=== PATIENT | female | born 2000 | race Caucasian/White ===

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

== ENCOUNTER 2020-05-23 16:15 | Observation (INO) ==
[2020-05-23] MEDS ORDERED: ACETAMINOPHEN 325 MG TAB PO PRN (17:00)
[2020-05-23] MEDS ORDERED: LACTATED RINGER'S 1,000 ML IV ONE (17:00)
--- NOTE | 2020-05-23 17:12 | History & Physical Report ---
Date of Service May 23, 2020 Assessment & Plan (1) Vaginal bleeding during : 19 yo at 33.56 wks with cramping, VB after VE VSS Afebrile FHR reassuring No regular ctxs on monitor VB is from either VE/ cervical irritation or early labor Plan to monitor, labs, US for CHIO and placenta, cultures, Celestone for FLM, IVF bolus and recheck All questions were answered (2) Threatened labor, antepartum: History of Present Illness Chief Complaint: Bleeding Primary Care Provider: NO PCP Patient is a 19 yo at 33.6 wks who presented to office for cramping/ ctxs every 10-15 since this morning She was oon monitor, no ctxs were seen Her cervix was closed She started to have active VB right after VE Blood on floor and used [address] ( dark small amount on her way here) Cramping is now in her back She also reports LOF for the last 2 days, she was not checked for that in the office She describes as mucous d/c and trickling clear fluid on her pad She never had VB until after VE in office Denies fever/ chills/ Problems with urination/ vaginal d/c or odor Denies chances of STD's Reports good +FM Allergies Allergy/AdvReac Type Severity Reaction Status Date / Time No Known Allergies Allergy Unknown NONE Verified 08/31/19 22:57 Home Medications Home Medications Medication Instructions Recorded Confirmed Type No Known Home Medications 08/31/19 08/31/19 History Patient History Medical History Migraines Seizures Surgical History No pertinent past surgical history Family History Other Diabetes Hypertension Social History Feels Safe at Home: Yes Smoking Status: Current every day smoker Review of Systems All systems reviewed & are unremarkable except as noted in HPI & below Physical Exam Gastrointestinal (Abdomen): normal bowel sounds, soft, nontender, no hepatosplenomegaly (soft, NT, gravid) Genitourinary: normal external appearance (stained blood on perineum, small dark) Manual OB Exam: + cervical dilation 1 cm, + cervical effacement 30% and + station -2 OB Exam Monitor Tracing: + category I SSE; small about 5 cc of dark blood in posterior fornix Cleaned with 3 leslie swabs, no active bleeding nor leaking from os Ferning negative Cervix as above Results & Data Vital Signs (Past 12 Hours) Vital Signs Pulse BP 20 16:37 108 H 119/75
[2020-05-23] MEDS ORDERED: BETAMETH SOD PHOS/ACETATE IA 6 MG/ML IM SCH (18:00)
[2020-05-23 18:06] LABS: Basophils # (auto) 0.02 K/uL (0-0.2); Basophils % (auto) 0.2 %; Eosinophils # (auto) 0.15 K/uL (0-0.5); Eosinophils % (auto) 1.3 %; Hematocrit (blood only) 31.3 % (37-47); Hemoglobin 10.2 g/dL (12.0-16.0); Immature Granulocytes # (auto) 0.14 K/uL (0.00-0.02); Immature Granulocytes % (auto) 1.2 %; Lymphocytes # (auto) 1.69 K/uL (1.2-3.4); Lymphocytes % (auto) 14.7 %; Mean Corpuscular Hemoglobin 29.8 pg (25-34); Mean Corpuscular Hgb Conc 32.6 g/dL (32-36); Mean Corpuscular Volume 91.5 fL (80-100); Mean Platelet Volume 11.1 fL (7.4-10.4); Monocytes # (auto) 0.93 K/uL (0.11-0.59); Monocytes % (auto) 8.1 %; Neutrophils # (auto) 8.55 K/uL (1.4-6.5); Neutrophils % (auto) 74.5 %; Platelet Count 240 K/uL (130-400); RDW Coefficient of Variation 12.8 % (11.5-14.5); RDW Standard Deviation 42.8 fL (36.4-46.3); Red Blood Count 3.42 M/uL (4.2-5.4); White Blood Count 11.48 K/uL (4.8-10.8)
[2020-05-23] MEDS: LACTATED RINGER'S 1,000 ML IV PRN ×2 (18:24→22:47)
[2020-05-23 18:25] LABS: Alanine Aminotransferase 20 U/L (12-78); Albumin Level 2.7 gm/dl (3.4-5.0); Aspartate Aminotransferase 14 U/L (15-37); BUN Creatinine Ratio 8.3 (10-20); Blood Urea Nitrogen 4 mg/dl (7-18); Calcium 8.6 mg/dl (8.5-10.1); Carbon Dioxide 25 mmol/L (21-32); Chloride 110 mmol/L (98-107); Creatinine Clr Calc Pharmacy 188.1 ml/min; Est GFR (African American) > 150.0; Est GFR (Non-African American) 139.3; Glucose 82 mg/dl (70-99); Potassium 3.6 mmol/L (3.5-5.1); Sodium 138 mmol/L (136-145)
[2020-05-23 18:27] LABS: Albumin Globulin Ratio 0.7 (0.9-2); Alkaline Phosphatase 127 U/L (45-117); Bilirubin,Total 0.2 mg/dl (0.2-1); Globulin 4.1 gm/dl (2.5-4.0); Total Protein 6.8 gm/dl (6.4-8.2)
[2020-05-23] MEDS ORDERED: NIFEdipine 10 MG CAP PO STA ×2 (18:37→19:34)
--- NOTE | 2020-05-23 19:08 | Obstetrical Progress Note ---
Date of Service May 23, 2020 Subjective Patient is reevaluated She feels about the same, Does not feel ctxs which are on monitor Small dark blood on toilet paper once since last exam FHR reactive Pomeroy; ctxs q 3-5 minutes VE; 2/ 50%/ -3, posterior, small dark blood on glove Bed side us: Vertex, placenta anterior, no previa, no s/s of abruption, smooth normal placenta CHIO; 12.1 cm Fetus active Discussed the findings and option of tocolysis here and then transfer if more cervical change or transfer to tertiary care center She likes to think about it and then decide She received 20 mg of Procardia now Results & Data ([facility]) Vital Signs (Past 12 Hours) Vital Signs Temp Pulse Resp BP 05/23/20 16:39 37.0 C 100 H 18 119/75 05/23/20 16:37 108 H 119/75
[2020-05-23 19:14] LABS: Fibrinogen 463 mg/dl (184-400); INR 0.9 (0.9-1.1); Partial Thromboplastin Ratio 0.9; Partial Thromboplastin Time 24.5 Seconds (21.0-31.0); Prothrombin Time 9.8 Seconds (9.0-12.0)
[2020-05-23] MEDS ORDERED: TERBUTALINE SULFATE 1 MG/ML VIAL SQ ONE (20:38)
--- NOTE | 2020-05-23 20:41 | Obstetrical Progress Note ---
Date of Service May 23, 2020 Subjective Patient is reevaluated She feels crampy, every 2-3 min, not painful No side effects from Procardia Wiped same, small dark blood, no red blood VE 2/ 30%/ -3, posterior, thicker and higher FHR reactive Keller: smaller but more often ctxs, q 1-2 minutes Pulse 97 Plan to give 1 dose of terbutaline and observe overnight All questions were answered Results & Data ([facility]) Vital Signs (Past 12 Hours) Vital Signs Temp Pulse Resp BP 05/23/20 20:36 97 H 119/67 05/23/20 20:04 113 H 128/68 05/23/20 19:31 37.1 C 113 H 20 132/80 05/23/20 19:04 100 H 130/88 05/23/20 16:39 37.0 C 100 H 18 119/75 05/23/20 16:37 108 H 119/75
[2020-05-23] MEDS ORDERED: FERROUS SULFATE 325 MG TAB PO STA (22:31)
[2020-05-23] MEDS ORDERED: NIFEdipine EXTENDED REL 30 MG TABCR PO SCH (23:55)
[2020-05-24] MEDS ORDERED: LACTATED RINGER'S 1,000 ML IV SCH (00:30)
--- NOTE | 2020-05-24 09:42 | Obstetrical Progress Note ---
Date of Service May 24, 2020 Assessment & Plan Admission and Anticipated Discharge Date Admission Date: May 23, 2020 Subjective Pt seen and examined FHR ; CAY1 No ctx pt reports feeling much better Denies any bleeding disch home with instructions Rx sent to [facility] Results & Data ([facility]) Vital Signs (Past 12 Hours) Vital Signs Temp Pulse Resp BP 05/24/20 07:07 94 H 116/69 05/24/20 07:01 36.6 C 18 05/24/20 07:00 18 05/24/20 06:00 18 05/24/20 05:30 18 05/24/20 05:00 18 05/24/20 04:27 96 H 118/69 05/24/20 00:40 36.7 C 18 05/24/20 00:37 36.7 C 18 05/24/20 00:35 126 H 125/69 05/24/20 00:31 111 H 111/60 05/24/20 00:16 112 H 113/56 L 05/24/20 00:15 110 H 112/58 L 05/23/20 23:32 118 H 130/76 05/23/20 23:17 125 H 133/72 05/23/20 23:02 121 H 127/70 05/23/20 23:00 37.0 C 18 05/23/20 22:52 123 H 121/63 05/23/20 22:32 120 H 130/65 05/23/20 22:16 116 H 125/73 05/23/20 22:02 121 H 132/77 05/23/20 21:46 118 H 129/67
--- NOTE | 2020-05-24 09:58 | Discharge Summary (DS) ---
DATE OF DISCHARGE: 05/24/2020 HISTORY OF PRESENT ILLNESS: This is a 19-year-old G1, P0 at 34 weeks today who was seen yesterday in the office with complaints of vaginal bleeding. She was sent to labor and delivery where she was admitted for observation overnight. While here in labor and delivery patient's bleeding remarkably improved. She has not had any bleeding since admission for observation. This morning she denies any bleeding. The patient had some cramping while she was here, which was also improved with Procardia and IV fluids. The patient is presently being discharged home in stable condition with instructions. PAST MEDICAL HISTORY, PAST SURGICAL HISTORY, ALLERGIES, FAMILY HISTORY, SOCIAL HISTORY: Have all been reviewed. PLAN ON DISCHARGE: The patient will follow up in the office as an outpatient.
[2020-05-24] MEDS ORDERED: BETAMETH SOD PHOS/ACETATE IA 6 MG/ML IM SCH (17:00)
== END 2020-05-24 10:00 | disposition home or self-care (01) ==
LOC: 4S1 16:15 → OPB 16:15 → 4S1 16:16

== ENCOUNTER 2020-07-04 13:24 | Inpatient (IN) ==
[2020-07-04] MEDS ORDERED: DINOPROSTONE 10 MG INSERT PV ONE (15:27)
[2020-07-04] MEDS ORDERED: PENICILLIN G POTASSIUM 6 MU in DEXTROSE 5% 250 ML IV STA (15:27)
[2020-07-04] MEDS ORDERED: OXYTOCIN 30 UNITS/500 ML BAG IV PRN ×2 (15:27→15:39)
--- NOTE | 2020-07-04 15:45 | History & Physical Report ---
Date of Service July 04, 2020 Assessment & Plan (1) Oligohydramnios: 19 yo at 39.6 wks with oligohydramnios, CHIO 2.2 VSS Afebrile No signs of ROM FHR reassuring GBS+ Plan to admit, monitor, discussed Cervidil vs Pitocin, she opted for Pitocin for IOL History of Present Illness Primary Care Provider: NO PCP Patient is a 19 yo at 39.6 wks who was sent from office with CHIO of 2.2 cm No complaints She has been having clear d/c since last week, not sure it was leaking, no gush, no trickling No ctxs/ VB/ fever/ chills/ Abd pain +FM's Her has been uncomplicated GBS+ COVID 19-: negative Allergies Allergy/AdvReac Type Severity Reaction Status Date / Time No Known Allergies Allergy Unknown NONE Verified 06/04/20 22:07 Home Medications Home Medications Medication Instructions Recorded Confirmed Type Vitamin 1 tab PO DAILY 05/23/20 07/04/20 History nifedipine [Procardia XL] 30 mg PO HS #21 tab 05/24/20 07/04/20 Rx Patient History Medical History Migraines Seizures Surgical History No pertinent past surgical history Social History Smoking Status: Former smoker Cigarettes Per Day: quit with positive test; Second Hand Exposure: No; Do You Dip or Chew Tobacco: No; Tobacco Cessation Education Requested by Patient: No Hx Alcohol Use: No Hx Substance Use: Yes Last Used Substance Other:: 2012 Preferred Language: [place] Communication Ability: Effective Desizing Machine Operator Required: No Beliefs That Will Affect Care: None marital status: Single Current Living Situation: Spouse Other Information That Helps Us Care for You: No Feels Safe at Home: Yes Safety Concerns: Feels Safe At This Time [employer] History No h/o STD's, no HSV Review of Systems All systems reviewed & are unremarkable except as noted in HPI & below Physical Exam Constitutional: WD/WN, vitals as above well developed and well nourished Comfortable, NAD Genitourinary: normal external appearance OB Exam Abdomen: + vertex Manual OB Exam: + cervical dilation 3 cm, + cervical effacement 50% and + station -2 OB Exam Monitor Tracing: + external uterine monitor used and + category I Results & Data Vital Signs (Past 12 Hours) Vital Signs Pulse Resp BP 07/04/20 14:39 107 H 18 131/81 07/04/20 13:38 107 H 131/81
[2020-07-04 15:58] LABS: Hematocrit (blood only) 32.6 % (37-47); Hemoglobin 10.6 g/dL (12.0-16.0); Mean Corpuscular Volume 89.1 fL (80-100); Mean Platelet Volume 11.2 fL (7.4-10.4); Platelet Count 247 K/uL (130-400); RDW Coefficient of Variation 13.3 % (11.5-14.5); RDW Standard Deviation 43.4 fL (36.4-46.3); Red Blood Count 3.66 M/uL (4.2-5.4); White Blood Count 12.21 K/uL (4.8-10.8)
[2020-07-04 15:59] LABS: Mean Corpuscular Hgb Conc 32.5 g/dL (32-36)
[2020-07-04] MEDS: LACTATED RINGER'S 1,000 ML IV PRN ×2 (16:00→19:51)
[2020-07-04 16:11] LABS: Alanine Aminotransferase 17 U/L (12-78); Albumin Level 2.6 gm/dl (3.4-5.0); Aspartate Aminotransferase 14 U/L (15-37); Blood Urea Nitrogen 5 mg/dl (7-18); Calcium 8.9 mg/dl (8.5-10.1); Carbon Dioxide 21 mmol/L (21-32); Chloride 107 mmol/L (98-107); Creatinine Clr Calc Pharmacy 190.3 ml/min; Est GFR (African American) > 150.0; Est GFR (Non-African American) 138.4; Glucose 71 mg/dl (70-99); Potassium 3.5 mmol/L (3.5-5.1); Sodium 135 mmol/L (136-145)
[2020-07-04 16:14] LABS: Albumin Globulin Ratio 0.6 (0.9-2); Alkaline Phosphatase 204 U/L (45-117); Bilirubin,Total 0.3 mg/dl (0.2-1); Globulin 4.3 gm/dl (2.5-4.0); Total Protein 6.9 gm/dl (6.4-8.2)
[2020-07-04] MEDS ORDERED: BUPIVACAINE 0.25% 30 ML VIAL ONE (19:58)
[2020-07-04] MEDS ORDERED: ePHEDrine sulfate 50 MG/ML AMP ONE (19:58)
--- NOTE | 2020-07-04 19:58 | Obstetrical Progress Note ---
Date of Service July 04, 2020 Assessment & Plan Admission and Anticipated Discharge Date Admission Date: July 04, 2020 Subjective Patient stated to feel ctxs for the last 30 min or so She wants to know what her cervix is and then plan for epidural VSS Afebrile FHR reassuring VE: 4/ 60%/ -2, attempted AROM but unable Continue to monitor Epidural for pain Results & Data ([facility]) Vital Signs (Past 12 Hours) Vital Signs Temp Pulse Resp BP 07/04/20 19:10 36.9 C 18 07/04/20 18:22 98 H 125/70 07/04/20 14:39 107 H 18 131/81 07/04/20 13:38 107 H 131/81
[2020-07-04] MEDS ORDERED: fentaNYL 2MCG/ML ROPIV 1.25MG/ML 100 ML BAG EPI ONE (19:59)
[2020-07-04] MEDS ORDERED: fentaNYL citrate 100 MCG/2 ML VIAL ONE (19:59)
--- NOTE | 2020-07-04 20:00 | Anesthesiology Consultation ---
Date of Service July 04, 2020 Assessment & Plan Chart Review Chart Review: Acceptable Risk for Surgery, Patient NOT seen in Pre Admission Testing and Acceptable Risk for Labor Epidural Consults Requested none ASA ASA2 Proposed Anesthesia Anesthesia Type: Labor Epidural and CSE History Height/Weight Height: 5 ft 5 in Weight: 85.729 kg Allergies Allergy/AdvReac Type Severity Reaction Status Date / Time No Known Allergies Allergy Unknown NONE Verified 06/04/20 22:07 Medications Home Medications Medication Instructions Recorded Confirmed Last Taken Vitamin 1 tab PO DAILY 05/23/20 07/04/20 06/03/20 20:30 nifedipine [Procardia XL] 30 mg PO HS #21 tab 05/24/20 07/04/20 06/03/20 20:30 Active Medications Generic Name Dose Route Start Last Admin Trade Name Freq PRN Reason Stop Dose Admin Lactated Ringer's 1,000 mls @ 150 mls/hr 07/04/20 15:27 07/04/20 19:51 Lr IV 07/06/20 15:26 999 mls/hr .[id number] PRN Administration L&D Protocol Protocol Oxytocin 30 units in 500 mls @ 10 mls/hr 07/04/20 15:39 07/04/20 18:50 Pitocin IV 07/06/20 15:38 0.6 units/hr .Q24H PRN 10 mls/hr Labor Induction/Augmentation Titration Protocol 0.6 UNITS/HR Past Medical History Medical History Migraines Seizures Exercise / Class Metabolic Activity II 4-5 Yardwork/Stairs/Walk up hill Past Family History Family History Other Diabetes Hypertension Past Surgical History Surgical History No pertinent past surgical history Past Anesthesia History No Hx of Anesthesia Complications and No Family Hx of Anesthesia Complications History of PONV No Hx of PONV and No Hx of Motion Sickness Social History Smoking Status: Former smoker Smoking cigarettes per day: quit with positive test Do You Dip or Chew Tobacco: No Hx Alcohol Use: No Hx Substance Use: Yes substance use type: marijuana Last Used Substance Other:: 2012 Physical Exam Vital Signs Last Vital Signs Temp 36.9 C 07/04/20 19:10 Pulse 98 H 07/04/20 18:22 Resp 18 07/04/20 19:10 BP 125/70 07/04/20 18:22 Testing Laboratory Results 07/04/20 15:45 07/04/20 15:45
[2020-07-04] MEDS: PENICILLIN G POTASSIUM 3 MU in DEXTROSE 5% 100 ML IV PRN (20:10)
[2020-07-04] MEDS ORDERED: ONDANSETRON INJ 2 MG/ML 2 ML VIAL IV PRN (20:41)
[2020-07-04] MEDS ORDERED: NALOXONE HCL 0.4 MG/1 ML VIAL/CARP IV PRN (20:41)
[2020-07-04] MEDS ORDERED: PROMETHAZINE HCL 25 MG in SODIUM CHLORIDE 0.9% 50 ML IV PRN (20:41)
[2020-07-04] MEDS ORDERED: DiphenhydrAMINE HCL 50 MG/ML VIAL IV PRN (20:41)
[2020-07-04] MEDS ORDERED: fentaNYL 2MCG/ML ROPIV 1.25MG/ML 100 ML BAG EPI PRN (20:41)
[2020-07-04] MEDS ORDERED: ePHEDrine sulfate 50 MG/ML AMP IV PRN (20:41)
[2020-07-04] MEDS ORDERED: NALOXONE HCL 1 MG in SODIUM CHLORIDE 0.9% 1000ML 1,000 ML IV PRN (20:41)
[2020-07-05] MEDS: LACTATED RINGER'S 1,000 ML IV PRN (00:02)
[2020-07-05] MEDS: PENICILLIN G POTASSIUM 3 MU in DEXTROSE 5% 100 ML IV PRN (00:02)
--- NOTE | 2020-07-05 00:13 | Obstetrical Progress Note ---
Date of Service July 05, 2020 Assessment & Plan Admission and Anticipated Discharge Date Admission Date: July 04, 2020 Subjective I checked her around 2330 Had VB, more than bloody show VE; 7/ 80%/ 0, scalp and sutures felt, no bag FHR 130's with mild early decels with ctxs and good variability Pitocin was stopped, IVF, O2 was started Bed side US: Vertex, n pelvis, facing up, FHR 130's, anterior normal placenta, CHIO 3.2 cm, there is a 4.5 pocket but has cord in it ( unable to count that) FHR now with acceleration No more VB Continue to monitor closely Order some labs Results & Data ([facility]) Vital Signs (Past 12 Hours) Vital Signs Temp Pulse Resp BP Pulse Ox 07/05/20 00:06 80 100 07/05/20 00:01 77 100 07/04/20 23:56 72 100 07/04/20 23:54 77 108/67 07/04/20 23:51 74 99 07/04/20 23:46 68 100 07/04/20 23:41 69 99 07/04/20 23:39 79 132/75 07/04/20 23:36 79 97 07/04/20 23:31 86 95 07/04/20 23:26 81 96 07/04/20 23:23 81 108/57 L 07/04/20 23:21 86 96 07/04/20 23:16 83 96 07/04/20 23:11 72 96 07/04/20 23:09 90 107/58 L 07/04/20 23:08 36.7 C 18 07/04/20 23:06 84 97 07/04/20 23:01 68 96 07/04/20 22:56 79 98 07/04/20 22:53 82 117/62 07/04/20 22:51 75 96 07/04/20 22:46 77 96 07/04/20 22:41 81 96 07/04/20 22:38 65 112/64 07/04/20 22:36 80 100 07/04/20 22:31 63 99 07/04/20 22:26 62 99 07/04/20 22:23 83 128/74 07/04/20 22:21 79 96 07/04/20 22:16 76 95 07/04/20 22:11 76 95 07/04/20 22:08 74 120/71 07/04/20 22:06 80 97 07/04/20 22:01 90 96 07/04/20 21:56 90 96 07/04/20 21:53 88 115/76 07/04/20 21:51 86 95 07/04/20 21:46 83 96 07/04/20 21:41 86 97 07/04/20 21:38 90 119/77 07/04/20 21:36 79 95 07/04/20 21:31 85 97 07/04/20 21:26 92 H 96 07/04/20 21:23 79 121/77 07/04/20 21:21 99 H 97 07/04/20 21:16 90 96 07/04/20 21:11 82 97 07/04/20 21:08 36.7 C 112 H 18 126/81 07/04/20 21:06 95 H 97 07/04/20 21:01 99 H 97 07/04/20 20:56 96 H 97 07/04/20 20:54 101 H 124/78 07/04/20 20:51 106 H 98 07/04/20 20:46 97 H 97 07/04/20 20:41 93 H 97 07/04/20 20:37 95 H 118/62 07/04/20 20:36 89 96 07/04/20 20:35 99 H 125/62 07/04/20 20:31 96 H 96 07/04/20 20:27 96 H 132/83 07/04/20 20:26 97 H 97 07/04/20 20:21 95 H 97 07/04/20 20:16 92 H 98 07/04/20 20:11 81 98 07/04/20 20:06 77 98 07/04/20 19:10 36.9 C 18 07/04/20 18:22 98 H 125/70 07/04/20 14:39 107 H 18 131/81 07/04/20 13:38 107 H 131/81
[2020-07-05 00:31] LABS: Basophils # (auto) 0.01 K/uL (0-0.2); Basophils % (auto) 0.1 %; Eosinophils # (auto) 0.09 K/uL (0-0.5); Eosinophils % (auto) 0.8 %; Hemoglobin 9.8 g/dL (12.0-16.0); Immature Granulocytes # (auto) 0.06 K/uL (0.00-0.02); Immature Granulocytes % (auto) 0.5 %; Lymphocytes # (auto) 2.11 K/uL (1.2-3.4); Lymphocytes % (auto) 17.7 %; Mean Corpuscular Hemoglobin 29.9 pg (25-34); Mean Corpuscular Volume 88.4 fL (80-100); Mean Platelet Volume 11.1 fL (7.4-10.4); Monocytes # (auto) 0.77 K/uL (0.11-0.59); Monocytes % (auto) 6.4 %; Neutrophils % (auto) 74.5 %; Platelet Count 216 K/uL (130-400); RDW Coefficient of Variation 13.3 % (11.5-14.5); RDW Standard Deviation 43.3 fL (36.4-46.3); Red Blood Count 3.28 M/uL (4.2-5.4); White Blood Count 11.94 K/uL (4.8-10.8)
[2020-07-05 00:35] LABS: Mean Corpuscular Hgb Conc 33.8 g/dL (32-36)
[2020-07-05 01:03] LABS: Fibrinogen 427 mg/dl (184-400); INR 0.9 (0.9-1.1); Partial Thromboplastin Ratio 0.8; Partial Thromboplastin Time 23.6 Seconds (21.0-31.0); Prothrombin Time 9.8 Seconds (9.0-12.0)
[2020-07-05] MEDS ORDERED: BENZOCAINE 20% AER SPR 82.5 GM CAN EXT PRN (04:52)
[2020-07-05] MEDS ORDERED: SUPERCREAM 0.870% 15 GM JAR EXT PRN (04:52)
[2020-07-05] MEDS ORDERED: HYDROCORTISONE ACETATE 25 MG SUPP PR PRN (04:52)
[2020-07-05] MEDS ORDERED: bisacodyL 10 MG SUPP PR PRN (04:52)
[2020-07-05] MEDS ORDERED: DIPHTHERIA/TETANUS/PERTUSSIS 0.5 ML SYR/VIAL IM ONE (04:52)
[2020-07-05] MEDS ORDERED: ACETAMINOPHEN 325 MG TAB PO PRN (04:52)
[2020-07-05] MEDS ORDERED: OXYCODONE/ACETAMINOPHEN 5mg/325mg TAB PO PRN (04:52)
[2020-07-05] MEDS: IBUPROFEN 600 MG TAB PO PRN ×3 (06:13→20:15)
[2020-07-05] MEDS: DOCUSATE SODIUM 100 MG CAP PO SCH ×2 (08:51→21:18)
--- NOTE | 2020-07-05 09:14 | Anesthesia Procedure Note ---
Date of Service July 05, 2020 Anesthesia Post Epidural Note Vital Signs Vital Signs: Temp Pulse Resp BP Pulse Ox 36.8 C 96 H 16 111/61 99 07/05/20 06:20 07/05/20 06:20 07/05/20 06:20 07/05/20 06:20 07/05/20 03:11 Pain Intensity Perineal: Pain Intensity: 2 Notes Mental Status: alert / awake / arousable and participated in evaluation Nausea / Vomiting: adequately controlled Pain: adequately controlled Airway Patency, RR, SpO2: stable & adequate BP & HR: stable & adequate Hydration State: stable & adequate Neuraxial Anesthesia: was administered and sensory block is resolving Anesthetic Complications: no major complications apparent and Pt Satisfied with anesthetic care Epidural: Removed without complications and With tip intact
--- NOTE | 2020-07-05 09:57 | Delivery Summary ---
DATE OF OPERATION: 07/05/2020 TIME OF DELIVERY: 02:48 a.m. DETAILS OF DELIVERY: The patient was found to be fully dilated and desired to push. She pushed through 3 contractions and baby's head was and heart rate was going down to 70s. There was a tight band on the hymen and perineal skin holding baby's head. It was incised with the scissors about 2 cm and then with the next push head was delivered without difficulty. Shoulders were delivered with minimal traction. Baby was handed off to the mother where mouth and nose were suctioned. Cord was clamped x2 and cut. It was 3-vessel cord. Cord blood was obtained and then vagina and perineum were checked for lacerations. There was a small episiotomy, which was opened earlier. It was a second-degree. It was repaired with 2-0 Vicryl in a running locked fashion, skin in a subcuticular fashion. Excellent hemostasis was achieved. Rest of the vagina and labia were intact. Placenta was found to be in the vagina, delivered spontaneous as intact and complete. Uterus was explored, found to be empty. Lower segment was cleared of all clots and debris. Fundus was firm. EBL was 200 mL. Mom and baby tolerated the procedure well. Sponge, lap, needle count was correct x2. Baby was a viable male infant, Apgars 8/9. No complications happened and I was present during whole procedure. I attest to the content of the Intraoperative Record and any orders documented therein. Any exceptions are noted below. ALEXD
[2020-07-06] MEDS: DOCUSATE SODIUM 100 MG CAP PO SCH ×2 (08:28→20:23)
[2020-07-06] MEDS: IBUPROFEN 600 MG TAB PO PRN (08:29)
--- NOTE | 2020-07-06 10:49 | Obstetrical Progress Note ---
Date of Service July 06, 2020 Assessment & Plan Admission and Anticipated Discharge Date Admission Date: July 04, 2020 Subjective PPD#1 doing well oob barber diet passing gas Physical Exam Constitutional: WD/WN, vitals as above comfortable abdomen is soft fundus firm no edema neg Shawn's tent d/c in AM Results & Data ([facility]) Vital Signs (Past 12 Hours) Vital Signs Temp Pulse Resp BP Pulse Ox 07/06/20 07:20 36.6 C 69 18 116/79 98 07/06/20 04:00 36.6 C 90 18 130/81 98 07/05/20 23:35 36.7 C 89 18 110/68 97 Laboratory Results Laboratory Results - last 72 hr 07/04/20 07/04/20 07/04/20 15:34 15:45 15:45 WBC 12.21 H RBC 3.66 L Hgb 10.6 L Hct 32.6 L MCV 89.1 MCH 29.0 MCHC 32.5 RDW Std Deviation 43.4 RDW Coeff of Otoniel 13.3 Plt Count 247 MPV 11.2 H Immature Gran % (Auto) Neut % (Auto) Lymph % (Auto) [place] % (Auto) Eos % (Auto) Baso % (Auto) Neut # (Auto) Lymph # (Auto) [place] # (Auto) Eos # (Auto) Baso # (Auto) Immature Gran # (Auto) PT INR APTT PTT Ratio Fibrinogen Sodium 135 L Potassium 3.5 Chloride 107 Carbon Dioxide 21 Anion Gap 7.0 BUN 5 L Creatinine 0.51 L Est Cr Clr Drug Dosing 190.3 Est GFR ( Amer) > 150.0 Est GFR (Non-Af Amer) 138.4 BUN/Creatinine Ratio 9.0 L Glucose 71 Calcium 8.9 Total Bilirubin 0.3 AST 14 L ALT 17 Alkaline Phosphatase 204 H Total Protein 6.9 Albumin 2.6 L Globulin 4.3 H Albumin/Globulin Ratio 0.6 L Amniotic Protein NEG 07/05/20 07/05/20 00:21 00:21 WBC 11.94 H RBC 3.28 L Hgb 9.8 L Hct 29.0 L MCV 88.4 MCH 29.9 MCHC 33.8 RDW Std Deviation 43.3 RDW Coeff of Otoniel 13.3 Plt Count 216 MPV 11.1 H Immature Gran % (Auto) 0.5 Neut % (Auto) 74.5 Lymph % (Auto) 17.7 [place] % (Auto) 6.4 Eos % (Auto) 0.8 Baso % (Auto) 0.1 Neut # (Auto) 8.90 H Lymph # (Auto) 2.11 [place] # (Auto) 0.77 H Eos # (Auto) 0.09 Baso # (Auto) 0.01 Immature Gran # (Auto) 0.06 H PT 9.8 INR 0.9 APTT 23.6 PTT Ratio 0.8 Fibrinogen 427 H Sodium Potassium Chloride Carbon Dioxide Anion Gap BUN Creatinine Est Cr Clr Drug Dosing Est GFR ( Amer) Est GFR (Non-Af Amer) BUN/Creatinine Ratio Glucose Calcium Total Bilirubin AST ALT Alkaline Phosphatase Total Protein Albumin Globulin Albumin/Globulin Ratio Amniotic Protein
[2020-07-06] MEDS ORDERED: bisacodyL 5 MG TABEC PO SCH (20:00)
[2020-07-07] MEDS: DOCUSATE SODIUM 100 MG CAP PO SCH (08:09)
--- NOTE | 2020-07-07 08:56 | Obstetrical Progress Note ---
Date of Service July 07, 2020 Assessment & Plan (1) Normal course: PPD #2 pt doing well No complaints wishes to be disch home d/c home with instructions Subjective Ambulation: ambulating normally Voiding: no voiding problems Passing Gas:: Yes Diet Tolerance:: regular diet Lochia:: Small Feeding Type:: breast feeding Review of Systems All systems reviewed & are unremarkable except as noted in HPI & below Physical Exam Constitutional WD/WN, vitals as above well developed and well nourished Eyes PERRL, conjunctivae normal, anicteric sclerae Neck trachea midline, no thyromegaly Respiratory normal respiratory effort, lungs clear to auscultation Auscultation: no crackles, no rales and no wheezes Cardiovascular RRR, no murmur, no edema Gastrointestinal (Abdomen) normal bowel sounds, soft, nontender, no hepatosplenomegaly Uterus is below umbilicus Musculoskeletal no cyanosis or clubbing, extremities motor strength 5/5 Skin no rashes, warm and dry Neurologic patellar DTR's 2+ bilat, sensation intact Psychiatric A+Ox3, euthymic affect Genitourinary normal external appearance Results & Data ([facility]) Vital Signs (Past 12 Hours) Vital Signs Temp Pulse Resp BP Pulse Ox 07/07/20 07:45 36.7 C 91 H 18 104/62 97 07/07/20 00:50 36.5 C 90 16 115/77
== END 2020-07-07 11:55 | disposition home or self-care (01) | DRG 807 ==
LOC: 4S1 13:24 → 4S2 07-05 06:30

== ENCOUNTER 2021-01-16 21:25 | Observation (INO) ==
[~2021-01-16 21:25] MED LIST: LACTATED RINGER'S 1,000 ML IV SCH
[2021-01-16] MEDS ORDERED: SODIUM CHLORIDE 0.9% 1000ML 1,000 ML IV SCH (22:00)
[2021-01-16 22:13] LABS: Hematocrit (blood only) 33.4 % (37-47); Hemoglobin 11.2 g/dL (12.0-16.0); Mean Corpuscular Hemoglobin 29.6 pg (25-34); Mean Corpuscular Hgb Conc 33.5 g/dL (32-36); Mean Corpuscular Volume 88.1 fL (80-100); Mean Platelet Volume 11.2 fL (7.4-10.4); Platelet Count 349 K/uL (130-400); RDW Standard Deviation 44.9 fL (36.4-46.3); Red Blood Count 3.79 M/uL (4.2-5.4); White Blood Count 17.19 K/uL (4.8-10.8)
[2021-01-16 22:20] LABS: Albumin Level 3.8 gm/dl (3.4-5.0); BUN Creatinine Ratio 15.5 (10-20); Calcium 9.3 mg/dl (8.5-10.1); Est GFR (African American) 127.9; Est GFR (Non-African American) 110.4; Potassium 3.3 mmol/L (3.5-5.1)
[2021-01-16 22:23] LABS: Albumin Globulin Ratio 1.1 (0.9-2); Bilirubin,Total 0.3 mg/dl (0.2-1); Globulin 3.5 gm/dl (2.5-4.0); Total Protein 7.3 gm/dl (6.4-8.2)
[2021-01-16 22:29] LABS: INR 1.1 (0.9-1.1); Partial Thromboplastin Ratio 0.8; Partial Thromboplastin Time 21.2 Seconds (21.0-31.0); Prothrombin Time 10.9 Seconds (9.0-12.0)
[2021-01-16] MEDS ORDERED: ONDANSETRON INJ 2 MG/ML 2 ML VIAL IV PRN ×2 (22:33→23:14)
[2021-01-16 22:34] LABS: Basophils # (auto) 0.07 K/uL (0-0.2); Basophils % (auto) 0.4 %; Eosinophils # (auto) 0.58 K/uL (0-0.5); Eosinophils % (auto) 3.4 %; Immature Granulocytes # (auto) 0.04 K/uL (0.00-0.02); Immature Granulocytes % (auto) 0.2 %; Lymphocytes # (auto) 5.07 K/uL (1.2-3.4); Lymphocytes % (auto) 29.5 %; Monocytes # (auto) 1.71 K/uL (0.11-0.59); Monocytes % (auto) 9.9 %; Neutrophils # (auto) 9.72 K/uL (1.4-6.5); Neutrophils % (auto) 56.6 %
[2021-01-16] MEDS ORDERED: LACTATED RINGER'S 1,000 ML IV SCH (22:45)
--- NOTE | 2021-01-16 22:45 | History & Physical Report ---
Date of Service January 16, 2021 Assessment & Plan (1) Vaginal bleeding during : (2) Incomplete : Admission and Anticipated Discharge Date Admission Date: 01/16/21 History of Present Illness Chief Complaint: vaginal bleeding Primary Care Provider: TOMI PCP 20 F [id number] who presents to ER with heavy vaginal bleeding with known early IUP. Patient bradycardic with ow BP in ER. Passing large fist sized clots. Allergies Allergy/AdvReac Type Severity Reaction Status Date / Time No Known Allergies Allergy Unknown NONE Verified 01/16/21 22:35 Home Medications Medication Instructions Recorded Confirmed Type No Known Home Medications 01/16/21 01/16/21 History Patient History Medical History Migraines Normal course Seizures Surgical History No pertinent past surgical history Family History Other Diabetes Hypertension Social History Smoking Status: Current every day smoker Cigarettes Per Day: quit with positive test; Second Hand Exposure: No; Hx Alcohol Use: No Hx Substance Use: Yes Last Used Substance Other:: 2012 Preferred Language: Kyrgyz Communication Ability: Effective Medical Concierge Required: No Beliefs That Will Affect Care: None marital status: Single Current Living Situation: Spouse Feels Safe at Home: Yes Assistive Devices: None OB History x1 6 months ago without any complications Review of Systems All systems reviewed & are unremarkable except as noted in HPI & below as per Subjective / HPI heavy vaginal bleeding Physical Exam Constitutional: WD/WN, vitals as above + acute distress pale looking from bleeding Eyes: PERRL, conjunctivae normal, anicteric sclerae Respiratory: normal respiratory effort, lungs clear to auscultation normal respiratory effort Cardiovascular: RRR, no murmur, no edema Skin: no rashes, warm and dry Neurologic: patellar DTR's 2+ bilat, sensation intact Psychiatric: A+Ox3, euthymic affect Genitourinary: normal external appearance Speculum/Bimanual Exam: + vaginal bleeding Results & Data ([facility]) Vital Signs (Past 12 Hours) Vital Signs Temp Pulse Resp BP Pulse Ox 01/16/21 21:33 36.5 C 75 23 101/58 L 97 Laboratory Results 01/16/21 01/16/21 01/16/21 21:40 21:40 21:40 WBC 17.19 H RBC 3.79 L Hgb 11.2 L Hct 33.4 L MCV 88.1 MCH 29.6 MCHC 33.5 RDW Std Deviation 44.9 RDW Coeff of Otoniel 14.0 Plt Count 349 MPV 11.2 H Immature Gran % (Auto) 0.2 Neut % (Auto) 56.6 Lymph % (Auto) 29.5 [place] % (Auto) 9.9 Eos % (Auto) 3.4 Baso % (Auto) 0.4 Neut # (Auto) 9.72 H Lymph # (Auto) 5.07 H [place] # (Auto) 1.71 H Eos # (Auto) 0.58 H Baso # (Auto) 0.07 Immature Gran # (Auto) 0.04 H PT 10.9 INR 1.1 APTT 21.2 PTT Ratio 0.8 Sodium 139 Potassium 3.3 L Chloride 107 Carbon Dioxide 25 Anion Gap 7.0 BUN 12 Creatinine 0.77 Est Cr Clr Drug Dosing 104.0 Est GFR ( Amer) 127.9 Est GFR (Non-Af Amer) 110.4 BUN/Creatinine Ratio 15.5 Glucose 136 H Calcium 9.3 Total Bilirubin 0.3 AST 8 L ALT 14 Alkaline Phosphatase 61 Total Protein 7.3 Albumin 3.8 Globulin 3.5 Albumin/Globulin Ratio 1.1 Code Status & VTE Plan VTE Prophylaxis Plan VTE Prophylaxis will be ordered: No
--- NOTE | 2021-01-16 22:50 | Anesthesiology Consultation ---
Date of Service January 16, 2021 Assessment & Plan Chart Review Chart Review: Acceptable Risk for Surgery and Patient NOT seen in Pre Admission Testing Consults Requested none ASA ASA2E Proposed Anesthesia Anesthesia Type: General History Height/Weight Height: 5 ft 5 in Weight: 65.2 kg Allergies Allergy/AdvReac Type Severity Reaction Status Date / Time No Known Allergies Allergy Unknown NONE Verified 01/16/21 22:35 Medications Home Medications Medication Instructions Recorded Confirmed Last Taken No Known Home Medications 01/16/21 01/16/21 Unknown Active Medications Generic Name Dose Route Start Last Admin Trade Name Freq PRN Reason Stop Dose Admin Sodium Chloride 1,000 mls @ 999 mls/hr 01/16/21 22:00 01/16/21 22:01 Nss 1000ml IV 01/16/21 23:00 999 mls/hr .Q1H1M LUANNE Administration Past Medical History Medical History Migraines Normal course Seizures Exercise / Class Metabolic Activity II 4-5 Yardwork/Stairs/Walk up hill Past Family History Family History Other Diabetes Hypertension Past Surgical History Surgical History No pertinent past surgical history Past Anesthesia History No Hx of Anesthesia Complications and No Family Hx of Anesthesia Complications History of PONV No Hx of PONV and No Hx of Motion Sickness Social History Smoking Status: Current every day smoker Smoking cigarettes per day: quit with positive test Hx Alcohol Use: No Hx Substance Use: Yes substance use type: marijuana Last Used Substance Other:: 2012 Physical Exam Vital Signs Last Vital Signs Temp 36.5 C 01/16/21 21:33 Pulse 69 01/16/21 22:40 Resp 21 01/16/21 22:40 BP 118/56 L 01/16/21 22:31 Pulse Ox 93 01/16/21 21:58 Testing Laboratory Results 01/16/21 21:40 01/16/21 21:40 PT 10.9 Seconds (9.0-12.0) 01/16/21 21:40 INR 1.1 (0.9-1.1) 01/16/21 21:40 APTT 21.2 Seconds (21.0-31.0) 01/16/21 21:40 01/16/21 21:40 HCG, Quant Pending
--- NOTE | 2021-01-16 22:56 | Emergency Department Note ---
History of Present Illness General Chief complaint: Vaginal Bleeding Stated complaint: VAGINAL BLEEDING Source: patient Mode of arrival: ambulatory Limitations: no limitations History of Present Illness Provider complaint: Heavy vaginal bleeding This is a 20-year-old G2, P1 reports possible first trimester miscarriage. She states that her last menstrual period was in September. She did have an ultrasound at her care nurse rn office that suggest that she was not that far along. She started having some vaginal bleeding 2 days ago and was felt to be having a miscarriage. Tonight her bleeding got significantly heavier about an hour prior to arrival. She was becoming lightheaded and dizzy and came to the ED for evaluation. She states that she felt like she might pass out. She states that she stood up at 1 point and a lot of blood started flowing down her leg with clots. She states that she had some transient nausea as well. She reports abdominal cramps and discomfort in the pelvis region. Home Medications Medication Instructions Recorded Confirmed Type No Known Home Medications 01/16/21 01/16/21 History Allergies Allergy/AdvReac Type Severity Reaction Status Date / Time No Known Allergies Allergy Unknown NONE Verified 01/16/21 22:35 Past Med/Surg History Medical History Migraines Normal course Seizures Surgical History No pertinent past surgical history Family History Other Diabetes Hypertension Social History Smoking Status: Current every day smoker Cigarettes Per Day: quit with positive test; Second Hand Exposure: No; Hx Alcohol Use: No Hx Substance Use: Yes Last Used Substance Other:: 2012 Preferred Language: Turkish Communication Ability: Effective Ginning Operator Required: No Beliefs That Will Affect Care: None marital status: Single Current Living Situation: Spouse Feels Safe at Home: Yes Assistive Devices: None Review of Systems A total of 10 systems reviewed and were otherwise negative Physical Exam Vital Signs Vital Signs - 24 hr 01/16/21 21:32 01/16/21 21:33 01/16/21 21:36 Temperature 36.5 C Temperature Source Oral Pulse Rate 81 75 87 Pulse Rate from SpO2 Sensor 82 86 Respiratory Rate 16 23 22 Respiratory Effort / Characteristics Non-Labored Respiratory Depth Normal Blood Pressure 101/58 L 101/58 L Blood Pressure Mean 72 72 Blood Pressure Position Lying Pulse Oximetry 98 97 100 Oxygen Delivery Method Room Air Room Air Room Air Sepsis Recent Fever Within 48 Hours No Sepsis New/Unexplained Change in Mental Status No Sepsis Action Taken by Nursing No Action Required 01/16/21 21:40 01/16/21 21:50 01/16/21 21:51 Temperature Temperature Source Pulse Rate 98 H 72 64 Pulse Rate from SpO2 Sensor 94 H 71 65 Respiratory Rate 20 21 15 Respiratory Effort / Characteristics Respiratory Depth Blood Pressure 96/68 L 94/56 L Blood Pressure Mean 77 68 Blood Pressure Position Pulse Oximetry 98 100 97 Oxygen Delivery Method Room Air Room Air Room Air Sepsis Recent Fever Within 48 Hours Sepsis New/Unexplained Change in Mental Status Sepsis Action Taken by Nursing 01/16/21 21:53 01/16/21 21:55 01/16/21 21:58 Temperature Temperature Source Pulse Rate 56 L 57 L 60 Pulse Rate from SpO2 Sensor 56 L 58 L 60 Respiratory Rate 18 21 19 Respiratory Effort / Characteristics Respiratory Depth Blood Pressure 62/29 L 83/41 L 90/58 L Blood Pressure Mean 40 55 68 Blood Pressure Position Pulse Oximetry 100 100 93 Oxygen Delivery Method Room Air Room Air Room Air Sepsis Recent Fever Within 48 Hours Sepsis New/Unexplained Change in Mental Status Sepsis Action Taken by Nursing 01/16/21 22:00 01/16/21 22:10 01/16/21 22:11 Temperature Temperature Source Pulse Rate 61 73 64 Pulse Rate from SpO2 Sensor 62 Respiratory Rate 17 19 21 Respiratory Effort / Characteristics Respiratory Depth Blood Pressure 105/66 Blood Pressure Mean 79 Blood Pressure Position Pulse Oximetry Oxygen Delivery Method Room Air Room Air Room Air Sepsis Recent Fever Within 48 Hours Sepsis New/Unexplained Change in Mental Status Sepsis Action Taken by Nursing 01/16/21 22:20 01/16/21 22:30 01/16/21 22:31 Temperature Temperature Source Pulse Rate 73 82 76 Pulse Rate from SpO2 Sensor Respiratory Rate 13 22 19 Respiratory Effort / Characteristics Respiratory Depth Blood Pressure 109/57 L 118/56 L Blood Pressure Mean 74 76 Blood Pressure Position Pulse Oximetry Oxygen Delivery Method Room Air Room Air Room Air Sepsis Recent Fever Within 48 Hours Sepsis New/Unexplained Change in Mental Status Sepsis Action Taken by Nursing 01/16/21 22:40 Temperature Temperature Source Pulse Rate 69 Pulse Rate from SpO2 Sensor Respiratory Rate 21 Respiratory Effort / Characteristics Respiratory Depth Blood Pressure Blood Pressure Mean Blood Pressure Position Pulse Oximetry Oxygen Delivery Method Room Air Sepsis Recent Fever Within 48 Hours Sepsis New/Unexplained Change in Mental Status Sepsis Action Taken by Nursing CONSTITUTIONAL/VITAL SIGNS: Reviewed / noted above. GENERAL: Non-toxic in appearance. INTEGUMENTARY: Warm, dry, and pale. HEAD: Normocephalic. EYES: without scleral icterus or trauma. ENT/OROPHARYNX: clear and moist. LYMPHADENOPATHY/NECK: Is supple without lymphadenopathy or meningismus. RESPIRATORY: Lungs clear and equal. CARDIOVASCULAR: Regular rate and rhythm. GI/ABDOMEN: Soft and nontender. No organomegaly or pulsatile mass. No rebound or guarding. Normal bowel sounds. EXTREMITIES: Warm and well perfused. NEUROLOGICAL: Intact without focal deficits. PSYCHIATRIC: normal affect. MUSCULOSKELETAL: Normally developed with good muscle tone. PELVIC: The patient had a moderate amount of bleeding through her clothes and on the bed when I first evaluated her. Pelvic exam revealed significant number of clots in the pelvis. There was around 3 fistful's of clot in the vaginal vault. This was removed. There was some clot coming from the cervix after removal of the clots from the vaginal area. TRIAGE NURSING DOCUMENTATION REVIEWED. Course Administered Medications Sodium Chloride (Nss 1000ml) 1,000 mls @ 999 mls/hr IV .Q1H1M LUANNE Stop: 01/16/21 23:00 Last Admin: 01/16/21 22:01 Dose: 999 mls/hr Documented by: [id number] Critical Care Time Critical Care Time: Yes Total Critical Care Time: 35 I have personally spent 35 minutes of critical care time in the direct man agement of this patient. This includes bedside care, interpretation of diagnostic studies, and testing, discussion with consultants, patient, and family members, and other required patient management activities. This 35 minutes is in excess of all separately billable procedures. Medical Decision Making Differential Diagnosis Differential includes miscarriage, retained products, heavy vaginal bleeding, anemia, vasovagal, ectopic . Medical Records Attestation: I reviewed the patient's medical records. Home Medications Current Medication List: was personally reviewed by me Laboratory Data Attestation: I reviewed the patient's lab results. Result diagrams: 01/16/21 21:40 01/16/21 21:40 Lab Results 01/16/21 01/16/21 01/16/21 Range/Units 21:40 21:40 21:40 WBC 17.19 H (4.8-10.8) K/uL RBC 3.79 L (4.2-5.4) M/uL Hgb 11.2 L (12.0-16.0) g/dL Hct 33.4 L (37-47) % MCV 88.1 (80-100) fL MCH 29.6 (25-34) pg MCHC 33.5 (32-36) g/dL RDW Std Deviation 44.9 (36.4-46.3) fL RDW Coeff of Otoniel 14.0 (11.5-14.5) % Plt Count 349 (130-400) K/uL MPV 11.2 H (7.4-10.4) fL Immature Gran % (Auto) 0.2 % Neut % (Auto) 56.6 % Lymph % (Auto) 29.5 % [place] % (Auto) 9.9 % Eos % (Auto) 3.4 % Baso % (Auto) 0.4 % Neut # (Auto) 9.72 H (1.4-6.5) K/uL Lymph # (Auto) 5.07 H (1.2-3.4) K/uL [place] # (Auto) 1.71 H (0.11-0.59) K/uL Eos # (Auto) 0.58 H (0-0.5) K/uL Baso # (Auto) 0.07 (0-0.2) K/uL Immature Gran # (Auto) 0.04 H (0.00-0.02) K/uL PT 10.9 (9.0-12.0) Seconds INR 1.1 (0.9-1.1) APTT 21.2 (21.0-31.0) Seconds PTT Ratio 0.8 Sodium 139 (136-145) mmol/L Potassium 3.3 L (3.5-5.1) mmol/L Chloride 107 (98-107) mmol/L Carbon Dioxide 25 (21-32) mmol/L Anion Gap 7.0 (3-11) BUN 12 (7-18) mg/dl Creatinine 0.77 (0.6-1.2) mg/dl Est Cr Clr Drug Dosing 104.0 ml/min Est GFR ( Amer) 127.9 Est GFR (Non-Af Amer) 110.4 BUN/Creatinine Ratio 15.5 (10-20) Glucose 136 H (70-99) mg/dl Calcium 9.3 (8.5-10.1) mg/dl Total Bilirubin 0.3 (0.2-1) mg/dl AST 8 L (15-37) U/L ALT 14 (12-78) U/L Alkaline Phosphatase 61 (45-117) U/L Total Protein 7.3 (6.4-8.2) gm/dl Albumin 3.8 (3.4-5.0) gm/dl Globulin 3.5 (2.5-4.0) gm/dl Albumin/Globulin Ratio 1.1 (0.9-2) MDM Narrative Patient presents with heavy vaginal bleeding for the past hour and a half associated with a miscarriage. Significant amount of clots were removed from the vagina. The patient was lightheaded and at 1 point her blood pressure was 62 systolic and her heart rate was 55.. She was given a liter normal saline IV. This may have been a vasovagal episode although it lasted for about 5 minutes. Her upper body was reclined and her feet were raised. Blood pressure slowly improved. White blood cell count is 17. Hemoglobin is 11.2. Chemistry panel was unremarkable. I did speak with Dr. Madison, CHARGE ACCOUNT CLERK, about the patient. He is going to see the patient in the ED and she is going for D&C. Impression & Plan Incomplete miscarriage with blood clot, Transient hypotension Discharge Plan Visit Data Chief Complaint: Vaginal Bleeding Stated Complaint: VAGINAL BLEEDING ED Provider: Lele Banegas Discharge Problem: Incomplete miscarriage with blood clot, Transient hypotension Patient Disposition: Being Evaluated by Surgeon Forms Stand Alone Forms: My [employer] Prescriptions Prescriptions: No Action No Known Home Medications RF: 0 Referrals Referrals: PCP,NO [Primary Care Provider] -
[2021-01-16] MEDS ORDERED: PROMETHAZINE HCL 12.5 MG in SODIUM CHLORIDE 0.9% 50 ML IV PRN (23:14)
[2021-01-16] MEDS ORDERED: NALOXONE HCL 0.4 MG/1 ML VIAL/CARP IV PRN (23:14)
[2021-01-16] MEDS ORDERED: fentaNYL citrate 100 MCG/2 ML VIAL IV PRN (23:14)
[2021-01-16] MEDS ORDERED: FLUMAZENIL 0.1 MG/1 ML 10 ML VIAL IV PRN (23:14)
[2021-01-16] MEDS ORDERED: ATROPINE SULFATE 0.1 MG/ML 10ML SYR IV PRN (23:14)
[2021-01-16] MEDS ORDERED: ePHEDrine sulfate 50 MG/ML AMP IV PRN (23:14)
[2021-01-16] MEDS ORDERED: SUCCINYLCHOLINE 100MG/5ML SYR IV ONE (23:23)
[2021-01-16] MEDS ORDERED: ETOMIDATE 2 MG/ML 20 ML VIAL IV ONE (23:24)
[2021-01-16] MEDS ORDERED: PROPOFOL IV EMULSION 10 MG/ML 20 ML VIAL IV ONE (23:24)
[2021-01-16] MEDS ORDERED: fentaNYL citrate 100 MCG/2 ML VIAL ONE (23:25)
[2021-01-16] MEDS ORDERED: MIDAZOLAM HCL 1 MG/ML 2ML VIAL ONE (23:26)
--- NOTE | 2021-01-17 00:13 | Post Operative Brief Note ---
Immediate Post Op Note v1 Date of Surgery January 17, 2021 Pre & Post Diagnosis Operation incomplete : 01/16/21 23:45 <No data on this case meets the specified criteria> I identified the patient and participated in the time-out.: Yes Procedure Dilation and Evacuation Operation Date: 01/16/21 23:45 <No data on this case meets the specified criteria> Surgeon Carlos Castillo MD Solutions Architect Consultant none Estimated Blood Loss 100 Findings Consistent with Post-Op Diagnosis Fluids LR 1000 ml Specimens products of conception Drains Other (none) Anesthesia Type General Complications none Disposition Accompanied Patient To Recovery: Yes Disposition: Surgical ICU Overlapping Procedure I was present for: the critical portions of procedure. I was immediately available: during the entire case. Back up surgeon: was not required during procedure.
[2021-01-17] MEDS ORDERED: OXYTOCIN 10 UNITS/ML VIAL ONE (00:16)
[2021-01-17] MEDS ORDERED: KETOROLAC 30 MG/ML VIAL ONE (00:23)
--- NOTE | 2021-01-17 00:41 | Anesthesiology Progress Note ---
Date of Service January 17, 2021 Anesthesia Post Procedure Vital Signs Vital Signs: Temp Pulse Pulse Resp BP BP Pulse Ox 01/17/21 00:35 116 H 20 105/70 100 01/17/21 00:25 36.6 C 125 H 20 137/62 100 01/16/21 23:23 69 89/47 L 95 01/16/21 23:20 62 17 88/51 L 99 01/16/21 23:19 61 100 01/16/21 23:18 91/46 L 100 01/16/21 23:00 84 20 109/66 100 01/16/21 22:50 93 H 22 106/59 L 100 01/16/21 22:40 69 21 01/16/21 22:31 76 19 118/56 L 01/16/21 22:30 82 22 01/16/21 22:20 73 13 109/57 L 01/16/21 22:11 64 21 105/66 01/16/21 22:10 73 19 01/16/21 22:00 61 17 01/16/21 21:58 60 19 90/58 L 93 01/16/21 21:55 57 L 21 83/41 L 100 01/16/21 21:53 56 L 18 62/29 L 100 01/16/21 21:51 64 15 94/56 L 97 01/16/21 21:50 72 21 100 01/16/21 21:40 98 H 20 96/68 L 98 01/16/21 21:36 87 22 100 01/16/21 21:33 36.5 C 75 23 101/58 L 97 01/16/21 21:32 81 16 101/58 L 98 Transfer of Care Handoff Completed per policy Notes Mental Status: alert / awake / arousable Patient Amnestic to Procedure: Yes Nausea / Vomiting: adequately controlled Pain: adequately controlled Airway Patency, RR, SpO2: stable & adequate BP & HR: stable & adequate Hydration State: stable & adequate Anesthetic Complications: no major complications apparent
[2021-01-17] MEDS ORDERED: LACTATED RINGER'S 1,000 ML IV SCH (01:30)
[2021-01-17] MEDS ORDERED: KETOROLAC 30 MG/ML VIAL IV PRN (01:30)
[2021-01-17] MEDS ORDERED: MoRPHine SULFATE 2 MG/ML CARP IV PRN (01:30)
[2021-01-17] MEDS ORDERED: IBUPROFEN 600 MG TAB PO PRN (01:30)
[2021-01-17 06:27] LABS: Hematocrit (blood only) 21.7 % (37-47); Hemoglobin 7.4 g/dL (12.0-16.0); Mean Corpuscular Hemoglobin 30.1 pg (25-34); Mean Corpuscular Hgb Conc 34.1 g/dL (32-36); Mean Corpuscular Volume 88.2 fL (80-100); Mean Platelet Volume 10.8 fL (7.4-10.4); Platelet Count 197 K/uL (130-400); RDW Coefficient of Variation 13.9 % (11.5-14.5); RDW Standard Deviation 44.9 fL (36.4-46.3); Red Blood Count 2.46 M/uL (4.2-5.4); White Blood Count 7.93 K/uL (4.8-10.8)
--- NOTE | 2021-01-17 07:00 | Gynecologic Progress Note ---
Date of Service January 17, 2021 Assessment & Plan Admission and Anticipated Discharge Date Admission Date: January 16, 2021 Subjective POD#1 doing well out of bed feeling tired no SOB or dizziness Physical Exam Constitutional: WD/WN, vitals as above well developed and comfortable Abdomen soft and non-tender no active bleeding no edema neg Shawn's will plan for discharge after breakfast Results & Data ([facility]) Vital Signs (Past 12 Hours) Vital Signs Temp Pulse Pulse Pulse Pulse Resp BP 01/17/21 04:45 36.6 C 86 16 01/17/21 03:25 36.6 C 83 16 01/17/21 02:25 36.5 C 77 16 01/17/21 01:55 36.5 C 74 18 01/17/21 01:25 36.6 C 86 20 01/17/21 00:55 36.7 C 99 H 16 01/17/21 00:45 105 H 20 01/17/21 00:35 116 H 20 01/17/21 00:25 36.6 C 125 H 20 01/16/21 23:23 69 89/47 L 01/16/21 23:20 62 17 88/51 L 01/16/21 23:19 61 01/16/21 23:18 91/46 L 01/16/21 23:00 84 20 109/66 01/16/21 22:50 93 H 22 106/59 L 01/16/21 22:40 69 21 01/16/21 22:31 76 19 118/56 L 01/16/21 22:30 82 22 01/16/21 22:20 73 13 109/57 L 01/16/21 22:11 64 21 105/66 01/16/21 22:10 73 19 01/16/21 22:00 61 17 01/16/21 21:58 60 19 90/58 L 01/16/21 21:55 57 L 21 83/41 L 01/16/21 21:53 56 L 18 62/29 L 01/16/21 21:51 64 15 94/56 L 01/16/21 21:50 72 21 01/16/21 21:40 98 H 20 96/68 L 01/16/21 21:36 87 22 01/16/21 21:33 36.5 C 75 23 101/58 L 01/16/21 21:32 81 16 101/58 L BP BP Pulse Ox 01/17/21 04:45 89/50 L 98 01/17/21 03:25 97/60 L 99 01/17/21 02:25 99/64 L 97 01/17/21 01:55 108/70 98 01/17/21 01:25 104/67 100 01/17/21 00:55 121/70 100 01/17/21 00:45 111/66 100 01/17/21 00:35 105/70 100 01/17/21 00:25 137/62 100 01/16/21 23:23 95 01/16/21 23:20 99 01/16/21 23:19 100 01/16/21 23:18 100 01/16/21 23:00 100 01/16/21 22:50 100 01/16/21 22:40 01/16/21 22:31 01/16/21 22:30 01/16/21 22:20 01/16/21 22:11 01/16/21 22:10 01/16/21 22:00 01/16/21 21:58 93 01/16/21 21:55 100 01/16/21 21:53 100 01/16/21 21:51 97 01/16/21 21:50 100 01/16/21 21:40 98 01/16/21 21:36 100 01/16/21 21:33 97 01/16/21 21:32 98 Laboratory Results Laboratory Results - last 72 hr 01/16/21 01/16/21 01/16/21 21:40 21:40 21:40 WBC 17.19 H RBC 3.79 L Hgb 11.2 L Hct 33.4 L MCV 88.1 MCH 29.6 MCHC 33.5 RDW Std Deviation 44.9 RDW Coeff of Otoniel 14.0 Plt Count 349 MPV 11.2 H Immature Gran % (Auto) 0.2 Neut % (Auto) 56.6 Lymph % (Auto) 29.5 Linn % (Auto) 9.9 Eos % (Auto) 3.4 Baso % (Auto) 0.4 Neut # (Auto) 9.72 H Lymph # (Auto) 5.07 H Linn # (Auto) 1.71 H Eos # (Auto) 0.58 H Baso # (Auto) 0.07 Immature Gran # (Auto) 0.04 H PT 10.9 INR 1.1 APTT 21.2 PTT Ratio 0.8 Sodium Potassium Chloride Carbon Dioxide Anion Gap BUN Creatinine Est Cr Clr Drug Dosing Est GFR ( Amer) Est GFR (Non-Af Amer) BUN/Creatinine Ratio Glucose Calcium Total Bilirubin AST ALT Alkaline Phosphatase Total Protein Albumin Globulin Albumin/Globulin Ratio HCG, Quant COVID-19 Eval Order SARS-CoV-2, RNA, NAAT Blood Type A Positive Antibody Screen NEGATIVE 01/16/21 01/16/21 01/16/21 21:40 21:40 22:51 WBC RBC Hgb Hct MCV MCH MCHC RDW Std Deviation RDW Coeff of Otoniel Plt Count MPV Immature Gran % (Auto) Neut % (Auto) Lymph % (Auto) Linn % (Auto) Eos % (Auto) Baso % (Auto) Neut # (Auto) Lymph # (Auto) Linn # (Auto) Eos # (Auto) Baso # (Auto) Immature Gran # (Auto) PT INR APTT PTT Ratio Sodium 139 Potassium 3.3 L Chloride 107 Carbon Dioxide 25 Anion Gap 7.0 BUN 12 Creatinine 0.77 Est Cr Clr Drug Dosing 104.0 Est GFR ( Amer) 127.9 Est GFR (Non-Af Amer) 110.4 BUN/Creatinine Ratio 15.5 Glucose 136 H Calcium 9.3 Total Bilirubin 0.3 AST 8 L ALT 14 Alkaline Phosphatase 61 Total Protein 7.3 Albumin 3.8 Globulin 3.5 Albumin/Globulin Ratio 1.1 HCG, Quant [id number] COVID-19 [facility] [place], RNA, NAAT Blood Type Antibody Screen 01/16/21 01/17/21 22:51 05:44 WBC 7.93 RBC 2.46 L Hgb 7.4 L D Hct 21.7 L MCV 88.2 MCH 30.1 MCHC 34.1 RDW Std Deviation 44.9 RDW Coeff of Otoniel 13.9 Plt Count 197 MPV 10.8 H Immature Gran % (Auto) Neut % (Auto) Lymph % (Auto) Linn % (Auto) Eos % (Auto) Baso % (Auto) Neut # (Auto) Lymph # (Auto) Linn # (Auto) Eos # (Auto) Baso # (Auto) Immature Gran # (Auto) PT INR APTT PTT Ratio Sodium Potassium Chloride Carbon Dioxide Anion Gap BUN Creatinine Est Cr Clr Drug Dosing Est GFR ( Amer) Est GFR (Non-Af Amer) BUN/Creatinine Ratio Glucose Calcium Total Bilirubin AST ALT Alkaline Phosphatase Total Protein Albumin Globulin Albumin/Globulin Ratio HCG, Quant COVID-19 Eval Order SARS-CoV-2, RNA, NAAT NEGATIVE Blood Type Antibody Screen
--- NOTE | 2021-01-17 08:57 | Obstetrical Progress Note ---
Date of Service January 17, 2021 Assessment & Plan Admission and Anticipated Discharge Date Admission Date: January 16, 2021 Subjective Patient is seen and examined Feels tired from being up all night Got up and used the BR with no dizziness Bleeding is light No pain no complaints Discussed contraception, offered her Depo provera before d/c but declined Discussed how to use iron pills All questions were answered Results & Data ([facility]) Vital Signs (Past 12 Hours) Vital Signs Temp Pulse Pulse Pulse Pulse Resp BP 01/17/21 08:01 36.5 C 80 16 01/17/21 04:45 36.6 C 86 16 01/17/21 03:25 36.6 C 83 16 01/17/21 02:25 36.5 C 77 16 01/17/21 01:55 36.5 C 74 18 01/17/21 01:25 36.6 C 86 20 01/17/21 00:55 36.7 C 99 H 16 01/17/21 00:45 105 H 20 01/17/21 00:35 116 H 20 01/17/21 00:25 36.6 C 125 H 20 01/16/21 23:23 69 89/47 L 01/16/21 23:20 62 17 88/51 L 01/16/21 23:19 61 01/16/21 23:18 91/46 L 01/16/21 23:00 84 20 109/66 01/16/21 22:50 93 H 22 106/59 L 01/16/21 22:40 69 21 01/16/21 22:31 76 19 118/56 L 01/16/21 22:30 82 22 01/16/21 22:20 73 13 109/57 L 01/16/21 22:11 64 21 105/66 01/16/21 22:10 73 19 01/16/21 22:00 61 17 01/16/21 21:58 60 19 90/58 L 01/16/21 21:55 57 L 21 83/41 L 01/16/21 21:53 56 L 18 62/29 L 01/16/21 21:51 64 15 94/56 L 01/16/21 21:50 72 21 01/16/21 21:40 98 H 20 96/68 L 01/16/21 21:36 87 22 01/16/21 21:33 36.5 C 75 23 101/58 L 01/16/21 21:32 81 16 101/58 L BP BP Pulse Ox 01/17/21 08:01 91/49 L 01/17/21 04:45 89/50 L 98 01/17/21 03:25 97/60 L 99 01/17/21 02:25 99/64 L 97 01/17/21 01:55 108/70 98 01/17/21 01:25 104/67 100 01/17/21 00:55 121/70 100 01/17/21 00:45 111/66 100 01/17/21 00:35 105/70 100 01/17/21 00:25 137/62 100 01/16/21 23:23 95 01/16/21 23:20 99 01/16/21 23:19 100 01/16/21 23:18 100 01/16/21 23:00 100 01/16/21 22:50 100 01/16/21 22:40 01/16/21 22:31 01/16/21 22:30 01/16/21 22:20 01/16/21 22:11 01/16/21 22:10 01/16/21 22:00 01/16/21 21:58 93 01/16/21 21:55 100 01/16/21 21:53 100 01/16/21 21:51 97 01/16/21 21:50 100 01/16/21 21:40 98 01/16/21 21:36 100 01/16/21 21:33 97 01/16/21 21:32 98
[2021-01-17] MEDS ORDERED: FERROUS SULFATE 325 MG TAB PO SCH (09:00)
--- NOTE | 2021-01-17 09:36 | Operative Report (OR) ---
DATE OF OPERATION: 01/17/2021 PREOPERATIVE DIAGNOSIS: Incomplete . POSTOPERATIVE DIAGNOSIS: Incomplete . PROCEDURE: Dilation and evacuation. SURGEON: Carlos Castillo MD. ANESTHESIA: General. FINDINGS: Products of conception. ESTIMATED BLOOD LOSS: 100 mL TOTAL FLUIDS: 1000 mL URINE OUTPUT: 100 mL CLINICAL HISTORY: The patient is a 20-year-old female, para 1-0-0-1, status post normal delivery 6 months ago, presents to the ER today, patient was seen in the office recently, had an ultrasound revealing an early failure. She presents today to the ER with heavy vaginal bleeding. She became hypotensive, bradycardic and passing extensive large clots. She was brought to the OR for an incomplete and a D and E was planned. Timeout was called prior to the start of procedure. DESCRIPTION OF PROCEDURE: After satisfactory general anesthesia, the patient was prepped and draped in usual sterile fashion. Timeout was called. A weighted speculum was placed. A catheter was then used to empty the bladder of 100 mL of clear urine. Weighted speculum was then placed in the posterior vault of the vagina. The vagina was cleared of copious clots. Single tube long Allis was placed on the anterior lip of the cervix. The cervix was sounded to approximately 10 cm. Products of conception were noted at the os. A #10 curved curette was then introduced curetting and suctioning out products of conception. Sharp endometrial curette revealed minimal tissue. No active bleeding was noted. The patient's blood type was A positive. She did not receive RhoGAM. Pitocin was started in the IV. All remaining instruments were then accounted for The final sponge, needle and instrument count were found to be correct. All remaining instruments were removed. The patient was then placed supine on a stretcher. She was taken to recovery room in stable condition. She will be discharged in the morning following a CBC. I attest to the content of the Intraoperative Record and any orders documented therein. Any exception s are noted below.
--- NOTE | 2021-01-17 12:08 | Electrocardiogram Report ---
Test Reason : Blood Pressure : / mmHG Vent. Rate : 071 BPM Atrial Rate : 087 BPM P-R Int : 144 ms QRS Dur : 076 ms QT Int : 396 ms P-R-T Axes : 071 035 040 degrees QTc Int : 430 ms Sinus rhythm with competing junctional rhythm Otherwise normal ECG Confirmed by Adam Fuentes ([id number]) on 01/17/2021 12:08:06 PM Referred By: REFERRED SELF Confirmed By:Fahad Fuentes
--- NOTE | 2021-01-22 12:02 | Discharge Summary (DS) ---
REASON FOR ADMISSION AND HOSPITAL COURSE: The patient is a 20-year-old female, para 1-0-0-1, status post normal delivery 6 months ago, presents to the ER with heavy vaginal bleeding and hypotension. The patient had an incomplete . She was taken to the OR for a D and E. D and E was performed and there were no complications. She was stable. She had a postop hemoglobin of 7.4 and 21.7; however, she was hemodynamically stable and was sent home with iron and Motrin for pain. Home going instructions were reviewed. Condition on discharge is stable. Regular diet on discharge. The pathology report revealed products of conception.
== END 2021-01-17 13:21 | disposition home or self-care (01) ==
LOC: ED 21:25 → ASU 23:40 → 4N 23:40

== ENCOUNTER 2025-11-11 14:01 | Observation (INO) ==
[2025-11-11] MEDS: SODIUM CHLORIDE 0.9% 1,000 ML IV ONE (14:27)
[2025-11-11] MEDS: ONDANSETRON INJ 2 MG/ML 2 ML VIAL IV STA ×2 (14:27→16:55)
[2025-11-11 14:47] LABS: Hematocrit (blood only) 35.5 % (37.0-47.0); Hemoglobin 11.6 g/dL (12.0-16.0); Immature Granulocytes # (auto) 0.04 K/uL (0.01-0.20); Immature Granulocytes % (auto) 0.4 %; Mean Corpuscular Hemoglobin 25.8 pg (25.0-34.0); Mean Corpuscular Volume 78.9 fL (80.0-100.0); Platelet Count 358 K/uL (130-400); RDW Standard Deviation 45.3 fL (36.4-46.3); Red Blood Count 4.50 M/uL (4.20-5.40); White Blood Count 10.35 K/ul (4.8-10.8)
[2025-11-11 14:50] LABS: Appearance Urine Clear (Clear); Bacteria Urine Automated None Seen (None Seen); Cast Urine Automated 0-2 /lpf (0-2); Glucose Urine UA Negative (Negative); RBC Urine Automated 0-2 /hpf (0-2)
[2025-11-11] MEDS: KETOROLAC TROMETHAMINE 15 MG/ML VIAL IV STA (14:52)
[2025-11-11 15:06] LABS: Alanine Aminotransferase 9 U/L (7-52); Albumin Level 5.0 gm/dl (3.4-5.0); Alkaline Phosphatase 38 U/L (34-104); Anion Gap 13 (3-11); Bilirubin,Total 0.6 mg/dl (0.2-1.0); Blood Urea Nitrogen 9 mg/dl (6-23); Calcium 10.0 mg/dl (8.6-10.3); Carbon Dioxide 20 mmol/L (21-32); Chloride 105 mmol/L (98-107); Glucose 146 mg/dl (70-99(Fasting)); Lipase 41 U/L (11-82); Potassium 3.3 mmol/L (3.5-5.1); Sodium 138 mmol/L (136-145); Total Protein 7.9 gm/dl (6.0-8.3)
--- NOTE | 2025-11-11 15:21 | Emergency Department Note ---
History of Present Illness General Chief complaint: Vomiting Stated complaint: Vomiting and abdominal pain Time Seen by Provider: 11/11/25 14:10 History of Present Illness Provider Complaint: + nausea and + vomiting Onset (ago): day(s) 1 Description of Vomiting: no bilious, no blood-streaked, no bloody or no coffee grounds Associated Abdominal Pain: Yes Location of pain: + diffuse Severity: moderate Maximum Pain Intensity: 7 Quality: + cramping Pain Consistency: + intermittent Relieved By: + none Exacerbated By: + vomiting Context: + smoking and + marijuana use; no foreign travel, no recent antibiotic use, no alcohol abuse, no trauma, no anticoagulant use, no NSAID use or no self induced Associated symptoms: no myalgias, no chest pain, no cough, no diaphoresis, no fever/chills, no headaches, no malaise, no dysuria, no shortness of breath, no syncope or no weakness Home Medications Medication Instructions Recorded Confirmed Type ondansetron 4 mg disintegrating 4 - 8 mg (1 - 2 x 4 mg) PO Q6H PRN 05/11/25 11/11/25 Rx tablet nausea and vomiting #20 tabs ondansetron 4 mg disintegrating 4 mg PO Q8H PRN nausea and 11/11/25 Rx tablet vomiting #30 tabs pantoprazole 40 mg tablet,delayed 0 mg PO DAILY 11/11/25 11/11/25 History release (Protonix) potassium chloride 20 mEq 0 meq PO DAILY 11/11/25 11/11/25 History tablet,extended release Allergies Allergy/AdvReac Type Severity Reaction Status Date / Time No Known Drug Allergies Allergy Verified 07/19/25 09:01 Past Med/Surg History Problem List (Updated 11/11/25 @ 18:50 by Raghavendra Conrad MD) Intractable nausea and vomiting (Acute) Anemia Encounter for pre-operative examination Vaginal bleeding during Threatened labor, antepartum Oligohydramnios Incomplete Incomplete miscarriage with blood clot (Acute) Transient hypotension (Acute) Unintentional weight loss Normal course Medical History Depression Anxiety Seizures dx when younger and grew out of them Migraines Surgical History S/P dilation and curettage Family History Other Diabetes Hypertension Denies family history of Ovarian cancer Prostate cancer Myocardial infarction Breast cancer Colorectal cancer Social History Smoking Status: Current every day smoker Tobacco Type: E-cigarettes / Vaping Cigarettes Per Day: 1 times every hour; Second Hand Exposure: No; Do You Dip or Chew Tobacco: No; Hx Alcohol Use: No Hx Substance Use: No Preferred Language: Chadian Communication Ability: Effective Visual Impairment: No Limitations Hearing Ability: Normal Newspaper Distributor Supervisor Required: No Beliefs That Will Affect Care: None marital status: Single Current Living Situation: Significant Other Current Living Situation Comment: significant other and baby current occupational status: employed current occupation: cleaning How many Children do You have: 2 Feels Safe at Home: Yes Childhood Exposure to Second-Hand Smoke: No Diet: other Diet Comment: low dairy, low greasy food caffeine: Yes during the past year weight has: remained stable Dental Care, Regularly: No Physical Activity Frequency: Daily Seatbelt Use: always Sunscreen Use: Yes Assistive Devices: None Physical Exam 2 Vital Signs: Vital Signs - 24 hr 11/11/25 14:05 11/11/25 17:12 Temperature 36.9 C Temperature Source Temporal Artery Sc an Pulse Rate 74 Pulse Rate [Finger ] 80 Respiratory Rate 18 22 Respiratory Effort / Characteristics Non-Labored Sponta neous Non-Labored Sponta neous Respiratory Depth Normal Normal Respiratory Patter n Regular Blood Pressure 125/78 Blood Pressure [Ri ght Arm] 127/79 Blood Pressure Joselin n 93 Blood Pressure Joselin n [Right Arm] 95 Blood Pressure Pos ition [Right Arm] Lying Pulse Oximetry 100 100 Oxygen Delivery Me thod Room Air Room Air Sepsis Recent Feve r Within 48 Hours No Sepsis New/Unexpla ined Change in Men bebo Status No Sepsis Action Take n by Nursing No Action Required Physical Exam: Physical Exam GENERAL: oriented to person, place, and time. appears well-developed and well- nourished. She does not appear distressed. HENT: Exam performed. -Head: Normocephalic and atraumatic. -Right Ear: External ear normal. No mastoid erythema -Left Ear: External ear normal. No mastoid erythema -Mouth/Throat: The oropharynx is clear and moist. No trismus in the jaw. No dental abscesses or uvula swelling. No oropharyngeal exudate or tonsillar abscesses. EYES: Conjunctivae and EOM are normal.Right eye exhibits no discharge. Left eye exhibits no discharge. No scleral icterus. NECK: Normal range of motion. Neck supple. No JVD present. No tracheal deviation and normal range of motion present. CV: Normal rate, regular rhythm, normal heart sounds and intact distal pulses. There is no peripheral edema. Palpable radial pulses bue. PULM/CHEST: Effort normal and breath sounds normal. No respiratory distress. No stridor. no wheezes.no rales. -Chest Wall: no tenderness to palpation ABD: The abdomen is soft. Bowel sounds are normal. no distension. No mass is present. There is no tenderness. There is no rebound, no guarding, no Loredo's sign and no tenderness at McBurney's point. Rovsig negative MUSC/SKEL: Normal range of motion. There is no peripheral edema, tenderness or deformity. NEURO: Motor and sensation grossly intact. SKIN: Skin is warm and dry. not diaphoretic. PSYCH: normal mood and affect. Behavior is normal. Judgment and thought content normal. Course Course 1410: The patient was evaluated in room D3. A complete history and physical exam was performed Cardiac monitoring: An order was placed for continuous cardiac monitoring. The monitor shows a rate of 70 with sinus rhythm interpreted by me 1630: Vital signs stable. Labs are unremarkable with the exception of potassium 3.3. CT abdomen pelvis is unremarkable. Patient be discharged with prescription antiemetics and follow-up PCP and GI. Insert discharge now 1645: At time of discharge patient began vomiting again. Will apply capsaicin to the patient and give another dose of Zofran as thought that her persistent nausea vomiting is likely due to the marijuana that she smokes. 1800: Vital signs stable. On reassessment patient is still having nausea and vomiting unable to keep p.o. down despite multiple doses of Zofran, Reglan, and capsaicin. I had a long discussion with the patient and her significant other at bedside and after discussion we decided to escalate care to the admission team. Administered Medications Sodium Chloride (Nss) 1,000 mls @ 125 mls/hr IV .Q8H LUANNE Stop: 11/14/25 17:59 Last Admin: 11/11/25 17:59 Dose: 125 mls/hr Documented By: ECS Discontinued Medications Capsaicin (Capsaicin Cr 0.075% 60 Gm Tube) 1 appln EXT NOW STA Stop: 11/11/25 16:44 Last Admin: 11/11/25 16:55 Dose: 1 appln Documented By: CHERRI Diphenhydramine HCl (Diphenhydramine 50 Mg/Ml Vial) 25 mg IV NOW STA Stop: 11/11/25 15:49 Last Admin: 11/11/25 15:54 Dose: 25 mg Documented By: CHERRI Sodium Chloride (Nss) 1,000 mls @ 999 mls/hr IV .Q1H1M ONE Stop: 11/11/25 15:10 Last Infusion: 11/11/25 15:57 Dose: Infused Documented By: Admin: 11/11/25 14:27 Dose: 999 mls/hr Documented By: blair Ioversol (Optiray 320 100ml) 94 ml IV ONCE ONE Stop: 11/11/25 15:40 Last Admin: 11/11/25 15:39 Dose: 94 ml Documented By: XIOMY Ketorolac Tromethamine (Ketorolac Tromethamine 15 Mg/Ml Vial) 15 mg IV NOW STA Stop: 11/11/25 14:49 Last Admin: 11/11/25 14:52 Dose: 15 mg Documented By: blair Lorazepam (Lorazepam 1 Mg Tab) 1 mg SL NOW STA Stop: 11/11/25 17:55 Last Admin: 11/11/25 17:59 Dose: 1 mg Documented By: FRIDA Metoclopramide HCl (Metoclopramide Hcl Inj 5 Mg/Ml 2 Ml Vial) 5 mg IV ONE ONE Stop: 11/11/25 15:49 Last Admin: 11/11/25 15:54 Dose: 5 mg Documented By: CHERRI Ondansetron HCl (Ondansetron Inj 2 Mg/Ml 2 Ml Vial) 4 mg IV NOW STA Stop: 11/11/25 14:11 Last Admin: 11/11/25 14:27 Dose: 4 mg Documented By: blair Ondansetron HCl (Ondansetron Inj 2 Mg/Ml 2 Ml Vial) 4 mg IV NOW STA Stop: 11/11/25 16:44 Last Admin: 11/11/25 16:55 Dose: 4 mg Documented By: CHERRI Medical Decision Making Laboratory Data Attestation: I reviewed the patient's lab results. 11/11/25 14:25 11/11/25 14:25 Lab Results 11/11/25 Range/Units 14:25 WBC 10.35 (4.8-10.8) K/ul RBC 4.50 (4.20-5.40) M/uL Hgb 11.6 L (12.0-16.0) g/dL Hct 35.5 L (37.0-47.0) % MCV 78.9 L (80.0-100.0) fL MCH 25.8 (25.0-34.0) pg MCHC 32.7 (32.0-36.0) g/dL RDW Std Deviation 45.3 (36.4-46.3) fL RDW Coeff of Otoniel 15.9 H (11.5-14.5) % Plt Count 358 (130-400) K/uL MPV 10.5 (9.4-12.4) fL Immature Gran % (Auto) 0.4 % Neut % (Auto) 86.0 % Lymph % (Auto) 8.4 % [place] % (Auto) 4.5 % Eos % (Auto) 0.2 % Baso % (Auto) 0.5 % Neut # (Auto) 8.90 H (1.40-6.50) K/uL Lymph # (Auto) 0.87 L (1.20-3.40) K/uL [place] # (Auto) 0.47 (0.11-0.59) K/uL Eos # (Auto) 0.02 (0.00-0.50) K/uL Baso # (Auto) 0.05 (0.00-0.20) K/uL Immature Gran # (Auto) 0.04 (0.01-0.20) K/uL PT 11.7 (9.0-12.0) Seconds INR 1.1 (0.9-1.1) APTT 21 (21-31) Seconds PTT Ratio 0.8 Sodium 138 (136-145) mmol/L Potassium 3.3 L (3.5-5.1) mmol/L Chloride 105 (98-107) mmol/L Carbon Dioxide 20 L (21-32) mmol/L Anion Gap 13 H (3-11) BUN 9 (6-23) mg/dl Creatinine 0.66 (0.6-1.2) mg/dl Est Cr Clr Drug Dosing Not Reportable eGFR 123.99 BUN/Creatinine Ratio 13.6 (10-20) Glucose 146 H (70-99(Fasting)) mg/dl Calcium 10.0 (8.6-10.3) mg/dl Total Bilirubin 0.6 (0.2-1.0) mg/dl Direct Bilirubin 0.1 (0-0.2) mg/dl AST 15 (13-39) U/L ALT 9 (7-52) U/L Alkaline Phosphatase 38 (34-104) U/L Total Protein 7.9 (6.0-8.3) gm/dl Albumin 5.0 (3.4-5.0) gm/dl Lipase 41 (11-82) U/L Urine Color Yellow Urine Appearance Clear (Clear) Urine pH >= 9.0 H (4.5-7.5) Ur Specific [place] 1.020 (1.000-1.030) Urine Protein 1+ H (Negative) Urine Glucose (UA) Negative (Negative) Urine Ketones 3+ H (Negative) Urine Blood Negative (Negative) Urine Nitrite Negative (Negative) Urine Bilirubin Negative (Negative) Urine Urobilinogen Negative (Negative) Ur Leukocyte Esterase Negative (Negative) Urine WBC (Auto) 6-10 H (0-5) /hpf Urine RBC (Auto) 0-2 (0-2) /hpf U Hyaline Cast (Auto) 0-2 (0-2) /lpf U Epithel Cells (Auto) 3-5 H (0-2) /hpf Urine Bacteria (Auto) None Seen (None Seen) POC Ur Test NEG (NEG) Urine Comment Imaging Data Radiologist's Impression: Abdomen/Pelvis CT 11/11/25 14:21 CT SCAN OF THE ABDOMEN AND PELVIS WITH IV CONTRAST CLINICAL HISTORY: Nausea and vomiting. Left upper quadrant abdominal pain. COMPARISON STUDY: Abdominal CT dated 05/09/2025. TECHNIQUE: Following the IV administration of 94 cc of Optiray 320, CT scan of the abdomen and pelvis is performed from the lung bases to the proximal femora. Images are reviewed in the axial, sagittal, and coronal planes. IV contrast was administered without complication. A dose lowering technique was utilized adhering to the principles of ALARA. CT DOSE: 426.52 mGy.cm FINDINGS: Lung bases: The heart is normal in size and without pericardial effusion. The lung bases are clear. Liver: The contrast-enhanced liver is normal in size, contour, and attenuation. There is no intrahepatic biliary ductal dilatation. The hepatic veins and portal veins are patent. Mild periportal edema is likely related to hydration status. Gallbladder: Unremarkable. Spleen: Normal in size and attenuation. Pancreas: Unremarkable. Adrenal glands: Unremarkable. Kidneys: The contrast enhanced kidneys are normal in size and without hydronephrosis. The kidneys enhance symmetrically. Abdominal vasculature: The abdominal aorta is normal in course and caliber. Bowel: No bowel obstruction is seen. The appendix is well-visualized and normal. Peritoneum: There is no intraperitoneal free air or abdominal ascites. Lymphadenopathy: None. Pelvic viscera: The bladder is normal as visualized. The uterus is normal in appearance noting an intrauterine device in place. There are bilateral ovarian follicles. A small volume of free fluid is seen in the cul-de-sac. Skeletal structures: No lytic or blastic lesions are seen. Degenerative sclerosis is seen in the sacroiliac joints and pubic symphysis. IMPRESSION: 1. No acute infectious or inflammatory findings are identified in the abdomen or pelvis. 2. Free fluid in the cul-de-sac is nonspecific and likely physiologic. ACT 112: Negative or not required by law. Electronically signed by: Yan De León M.D. 11/11/2025 3:53 PM ECG Data Attestation: I personally reviewed and interpreted this ECG as follows: Rate (beats per minute): 74 Rhythm: normal sinus Findings: no ST depression, no ST elevation or no prolonged QT Additional Comments: QRS 78 MDM Narrative 1410: The patient was evaluated in room D3. A complete history and physical exam was performed Cardiac monitoring: An order was placed for continuous cardiac monitoring. The monitor shows a rate of 70 with sinus rhythm interpreted by me 1630: Vital signs stable. Labs are unremarkable with the exception of potassium 3.3. CT abdomen pelvis is unremarkable. Patient be discharged with prescription antiemetics and follow-up PCP and GI. Insert discharge now 1645: At time of discharge patient began vomiting again. Will apply capsaicin to the patient and give another dose of Zofran as thought that her persistent nausea vomiting is likely due to the marijuana that she smokes. 1800: Vital signs stable. On reassessment patient is still having nausea and vomiting unable to keep p.o. down despite multiple doses of Zofran, Reglan, and capsaicin. I had a long discussion with the patient and her significant other at bedside and after discussion we decided to escalate care to the admission team. Impression & Plan Intractable nausea and vomiting Discharge Plan Visit Data Chief Complaint: Vomiting Stated Complaint: Vomiting and abdominal pain ED Provider: Raghavendra Conrad Discharge Problem: Intractable nausea and vomiting Patient Disposition: Being Evaluated by Hospitalist Condition: Fair Discharge Instructions Krames/Other Patient Handouts: ED Diet Vomiting Diarrhea, ED [facility] Vomiting Forms Stand Alone Forms: My [facility], Important Visit Information Prescriptions Prescriptions: New ondansetron 4 mg tablet,disintegrating 4 mg PO Q8H PRN (Reason: nausea and vomiting) Qty: 30 0RF No Action ondansetron 4 mg tablet,disintegrating 4 - 8 mg PO Q6H PRN (Reason: nausea and vomiting) Qty: 20 0RF pantoprazole [Protonix] 40 mg tablet,delayed release (DR/EC) 0 mg PO DAILY Patient Comments: 11/11-last filled 07/19 90 day supply #90 potassium chloride 20 mEq tablet extended release 0 meq PO DAILY Patient Comments: 11/11-last filled 07/19 90 day supply #90 Referrals Referrals: Erik Horan DO [Primary Care Provider] - (Follow-up in 1-7 days.)
[2025-11-11 15:23] LABS: INR 1.1 (0.9-1.1); Partial Thromboplastin Time 21 Seconds (21-31); Prothrombin Time 11.7 Seconds (9.0-12.0)
[2025-11-11] MEDS: OPTIRAY 320 100ml IV ONE (15:39)
[2025-11-11] MEDS: diphenhydrAMINE 50 MG/ML VIAL IV STA (15:54)
[2025-11-11] MEDS: METOCLOPRAMIDE HCL INJ 5 MG/ML 2 ML VIAL IV ONE (15:54)
--- NOTE | 2025-11-11 15:55 | CT Scan Report ---
CT SCAN OF THE ABDOMEN AND PELVIS WITH IV CONTRAST CLINICAL HISTORY: Nausea and vomiting. Left upper quadrant abdominal pain. COMPARISON STUDY: Abdominal CT dated 05/09/2025. TECHNIQUE: Following the IV administration of 94 cc of Optiray 320, CT scan of the abdomen and pelvi s is performed from the lung bases to the proximal femora. Images are reviewed in the axial, sagittal , and coronal planes. IV contrast was administered without complication. A dose lowering technique wa s utilized adhering to the principles of ALARA. CT DOSE: 426.52 mGy.cm FINDINGS: Lung bases: The heart is normal in size and without pericardial effusion. The lung bases are clear. Liver: The contrast-enhanced liver is normal in size, contour, and attenuation. There is no intrahepa tic biliary ductal dilatation. The hepatic veins and portal veins are patent. Mild periportal edema i s likely related to hydration status. Gallbladder: Unremarkable. Spleen: Normal in size and attenuation. Pancreas: Unremarkable. Adrenal glands: Unremarkable. Kidneys: The contrast enhanced kidneys are normal in size and without hydronephrosis. The kidneys enh ance symmetrically. Abdominal vasculature: The abdominal aorta is normal in course and caliber. Bowel: No bowel obstruction is seen. The appendix is well-visualized and normal. Peritoneum: There is no intraperitoneal free air or abdominal ascites. Lymphadenopathy: None. Pelvic viscera: The bladder is normal as visualized. The uterus is normal in appearance noting an int rauterine device in place. There are bilateral ovarian follicles. A small volume of free fluid is see n in the cul-de-sac. Skeletal structures: No lytic or blastic lesions are seen. Degenerative sclerosis is seen in the sacr oiliac joints and pubic symphysis. IMPRESSION: 1. No acute infectious or inflammatory findings are identified in the abdomen or pelvis. 2. Free fluid in the cul-de-sac is nonspecific and likely physiologic. ACT 112: Negative or not required by law. Electronically signed by: Yan De León M.D. 11/11/2025 3:53 PM
[2025-11-11] MEDS: CAPSAICIN CR 0.075% 60 GM TUBE EXT STA (16:55)
[2025-11-11] MEDS: SODIUM CHLORIDE 0.9% 1,000 ML IV SCH (17:59)
[2025-11-11] MEDS: LORazepam 1 MG TAB SL STA (17:59)
--- NOTE | 2025-11-11 19:25 | History & Physical Report ---
Date of Service November 11, 2025 Assessment & Plan (1) Intractable nausea and vomiting: Plan In summary this is a 25-year-old female presenting with intractable nausea and vomiting Primarily suspect this is a consequence of untreated gastroesophageal reflux disease as the patient is rather nonadherent with their prescribed pantoprazole and they do have symptoms of a recent flare; there is a degree of suspicion for cannabis hyperemesis syndrome/cyclic vomiting syndrome however the patient's intake of cannabis is not to the degree that is typically associated with this condition and they would be unexpected to see this suddenly occur without a significant shift in their frequency of use Continue IV fluid resuscitation Administer one-time pantoprazole 40 mg IV followed by 40 mg p.o. daily as previously prescribed Continue with supportive care DVT PPx: ambulatory History of Present Illness Chief Complaint: Intractable nausea and vomiting Primary Care Provider: Erik Horan DO Ms. Rodriguez is a 25-year-old female whose active medical conditions include gastroesophageal reflux disease, nicotine and cannabis use disorders, iron deficiency anemia who presents to the [facility] [address] due to sudden onset nausea and vomiting that has been intractable and began on the same day of presentation. Patient woke up this morning feeling relatively unwell, then began developing persistent episodes of emesis. They deny any hematemesis nor bilious emesis. They have been able to tolerate oral intake in between these episodes however they feel at everything that they eat or drink shortly afterward come back up. The patient has not tried any medications for this at home. They do have some mild abdominal pain in the left upper quadrant, they describe this is both sharp and aching and it comes and goes. They feel that it is slightly worse after vomiting but then will fade away. They deny any recent travel, new medications or antibiotics, no other individuals in the household are feeling similar symptoms, they have not had any recent dietary changes nor new restaurants in the last few days.The patient denies any alcohol use, they do endorse daily use of vaporized nicotine in addition to use of inhaled marijuana which is obtained at a local dispensary which is used approximately 3 to 4 days/week. Allergies Allergy/AdvReac Type Severity Reaction Status Date / Time No Known Drug Allergies Allergy Verified 07/19/25 09:01 Home Medications Medication Instructions Recorded Confirmed Type ondansetron 4 mg disintegrating 4 - 8 mg (1 - 2 x 4 mg) PO Q6H PRN 05/11/25 11/11/25 Rx tablet nausea and vomiting #20 tabs ondansetron 4 mg disintegrating 4 mg PO Q8H PRN nausea and 11/11/25 Rx tablet vomiting #30 tabs pantoprazole 40 mg tablet,delayed 0 mg PO DAILY 11/11/25 11/11/25 History release (Protonix) potassium chloride 20 mEq 0 meq PO DAILY 11/11/25 11/11/25 History tablet,extended release Past Med/Surg History Problem List (Updated 11/11/25 @ 18:50 by Raghavendra Conrad MD) Intractable nausea and vomiting (Acute) Anemia Encounter for pre-operative examination Vaginal bleeding during Threatened labor, antepartum Oligohydramnios Incomplete Incomplete miscarriage with blood clot (Acute) Transient hypotension (Acute) Unintentional weight loss Normal course Medical History Depression Anxiety Seizures dx when younger and grew out of them Migraines Surgical History S/P dilation and curettage Family History Other Diabetes Hypertension Denies family history of Ovarian cancer Prostate cancer Myocardial infarction Breast cancer Colorectal cancer Social History (Updated 11/11/25 @ 19:26 by Thomas Garces DO) Smoking Status: Current every day smoker Tobacco Type: E-cigarettes / Vaping Cigarettes Per Day: 1 times every hour; Second Hand Exposure: No; Do You Dip or Chew Tobacco: No; Hx Alcohol Use: No Hx Substance Use: Yes Non-Prescribed Medications: Marijuana Last Used Substance Other:: Within past week Preferred Language: Georgian Communication Ability: Effective Visual Impairment: No Limitations Hearing Ability: Normal Network Design Architect Required: No Beliefs That Will Affect Care: None marital status: Single Current Living Situation: Significant Other Current Living Situation Comment: significant other and baby current occupational status: employed current occupation: cleaning How many Children do You have: 2 Feels Safe at Home: Yes Childhood Exposure to Second-Hand Smoke: No Diet: other Diet Comment: low dairy, low greasy food caffeine: Yes during the past year weight has: remained stable Dental Care, Regularly: No Physical Activity Frequency: Daily Seatbelt Use: always Sunscreen Use: Yes Assistive Devices: None Review of Systems Review of Systems: Review of constitutional, cardiovascular, pulmonary, gastrointestinal systems was unremarkable except for pertinent positive and negative findings discussed above Physical Exam Physical Exam: General: Young adult female in no acute distress Vital Signs: Reviewed HEENT: Tacky mucous membranes; pupils equally round and reactive to light, extraocular motion intact Pulmonary: Symmetric chest wall excursion without restriction; clear to auscultation bilaterally Cardiovascular: Regular rate and rhythm without murmurs, rubs, or gallops; S1 and S2 normal; right radial pulse 2+ with brisk capillary refill Gastrointestinal: Soft, nondistended; mildly tender to deep palpation in the left upper quadrant without palpable mass or abnormality it is nonradiating; there are no acute peritoneal findings Results & Data Results & Data Vital Signs (Past 12 Hours) Vital Signs Temp Pulse Pulse Resp BP BP Pulse Ox 11/11/25 19:00 69 18 106/36 L 100 11/11/25 17:12 80 22 127/79 100 11/11/25 14:05 36.9 C 74 18 125/78 100 O2 Del Method 11/11/25 19:00 11/11/25 17:12 Room Air 11/11/25 14:05 Room Air Laboratory Results Hemoglobin 11.6, MCV 78.9, MCHC 32.7 Potassium 3.3, CO2 20, anion gap 13 Code Status & VTE Plan Code Status Full code VTE Prophylaxis Plan VTE Prophylaxis will be ordered: No Reason for no VTE drug order: Treatment not indicated PG Care Time/CCT Total # of Minutes Spent Total Time Spent with Patient: Total time spent is greater than 50% in coordination of care (as documented) at patient's floor/unit and/or counseling patient: Coding Level of Care Code 42229 INT INP/OBS CARE 1/40MIN Diagnoses Intractable nausea and vomiting R11.2
[2025-11-11] MEDS: LACTATED RINGER'S 1,000 ML IV SCH (21:44)
[2025-11-11 22:00] VITALS: RESP 16
[2025-11-11] MEDS: ONDANSETRON INJ 2 MG/ML 2 ML VIAL IV SCH (22:06)
[2025-11-11] MEDS: ACETAMINOPHEN 500 MG TAB PO SCH (22:06)
[2025-11-11] MEDS: PANTOprazole 40 MG/10 ML SYR IV ONE (23:07)
[2025-11-12 07:27] LABS: Albumin Level 4.2 gm/dl (3.4-5.0); Anion Gap 9.0 (3-11); Blood Urea Nitrogen 10.0 mg/dl (6-23); Calcium 8.9 mg/dl (8.6-10.3); Carbon Dioxide 24.0 mmol/L (21-32); Chloride 106.0 mmol/L (98-107); Creatinine Clr Calc Pharmacy 127.9 ml/min; Glucose 114.0 mg/dl (70-99(Fasting)); Magnesium 1.7 mg/dl (1.7-2.4); Potassium 3.6 mmol/L (3.5-5.1); Sodium 139.0 mmol/L (136-145)
[2025-11-12 07:49] VITALS: TEMP 98.1
--- NOTE | 2025-11-12 09:41 | Electrocardiogram Report ---
Test Reason : Blood Pressure : */* mmHG Vent. Rate : 74 BPM Atrial Rate : 74 BPM P-R Int : 152 ms QRS Dur : 78 ms QT Int : 436 ms P-R-T Axes : 29 52 15 degrees QTcB Int : 483 ms Sinus rhythm with marked sinus arrhythmia Poor R wave progression, consider anterior TX vs. lead placement vs. LVH Nonspecific T wave abnormality Abnormal ECG When compared with ECG of 16-Jan-2021 22:06, Nonspecific T wave abnormality now evident in Inferior leads Nonspecific T wave abnormality, worse in Anterior leads QT has lengthened Confirmed by Damir aCin ([id number]) on 11/12/2025 9:41:35 AM Referred By: REFERRED SELF Confirmed By: Damir Cain
[2025-11-12] MEDS: ALUMINUM/MAGNESIUM SUSP 30 ML UDC PO STA (09:52)
[2025-11-12] MEDS: hydrOXYzine HCL IM SOLN 50 MG/ML 1 ML VIAL IM STA (10:13)
[2025-11-12] MEDS ORDERED: LACTATED RINGER'S 1,000 ML IV SCH (10:15)
--- NOTE | 2025-11-12 13:19 | Hospitalist Progress Note ---
Date of Service November 12, 2025 Assessment & Plan (1) Intractable nausea and vomiting: Plan In summary this is a 25-year-old female presenting with intractable nausea and vomiting Primarily suspect this is a consequence of untreated gastroesophageal reflux disease as the patient is rather nonadherent with their prescribed pantoprazole and they do have symptoms of a recent flare; there is a degree of suspicion for cannabis hyperemesis syndrome/cyclic vomiting syndrome however the patient's intake of cannabis is not to the degree that is typically associated with this condition and they would be unexpected to see this suddenly occur without a significant shift in their frequency of use - One time dose of Maalox Continue IV fluid resuscitation Continue pantoprazole 40 mg p.o. daily Continue with supportive care DVT PPx: ambulatory Admission and Anticipated Discharge Date Admission Date: November 11, 2025 Subjective Ms. Williamson is a 25-year-old female whose active medical conditions include gastroesophageal reflux disease, nicotine and cannabis use disorders, iron deficiency anemia who presents to the [facility] due to sudden onset nausea and vomiting that has been intractable and began on the same day of presentation. No acute overnight events; continues to have episodes of abdominal discomfort, not changed in severity or location compared to her presentation; she recently had an episode of emesis which is collected in an emesis bag at bedside, approximately 400 mL of translucent fluid, no blood or bilious contents noted Review of Systems Review of Systems: Review of constitutional, cardiovascular, pulmonary, gastrointestinal systems was unremarkable except for pertinent positive and negative findings discussed above Physical Exam Physical Exam: General: Young adult female in no acute distress Vital Signs: Reviewed HEENT: Tacky mucous membranes; pupils equally round and reactive to light, extraocular motion intact Pulmonary: Symmetric chest wall excursion without restriction; clear to auscultation bilaterally Cardiovascular: Regular rate and rhythm without murmurs, rubs, or gallops; S1 and S2 normal; right radial pulse 2+ with brisk capillary refill Gastrointestinal: Soft, nondistended; mildly tender to deep palpation in the left upper quadrant without palpable mass or abnormality it is nonradiating; there are no acute peritoneal findings Results & Data Results & Data Vital Signs (Past 12 Hours) Vital Signs Temp Pulse Resp BP Pulse Ox O2 Del Method 11/12/25 07:46 36.7 C 79 16 109/48 L 99 Room Air 11/12/25 04:00 97 Room Air PG Care Time/CCT Total # of Minutes Spent Total Time Spent with Patient: Total time spent is greater than 50% in coordination of care (as documented) at patient's floor/unit and/or counseling patient: Coding Level of Care Code 38874 SUB INP/OBS CARE 1/25MIN Diagnoses Intractable nausea and vomiting R11.2
[2025-11-12 14:36] VITALS: BP 105/58; PULSE 94; O2SAT 98
--- NOTE | 2025-11-13 17:08 | Discharge Summary ---
Discharge Summary Date of Service November 12, 2025 Principal Dx & Hospital Course #1 = Principal Diagnosis (1) Intractable nausea and vomiting: Plan In summary this is a 25-year-old female presenting with intractable nausea and vomiting Primarily suspect this is a consequence of untreated gastroesophageal reflux disease as the patient is rather nonadherent with their prescribed pantoprazole and they do have symptoms of a recent flare; there is a degree of suspicion for cannabis hyperemesis syndrome/cyclic vomiting syndrome however the patient's intake of cannabis is not to the degree that is typically associated with this condition and it would be unexpected to see this suddenly occur without a significant shift in their frequency of use - Resolved with PPI therapy and Maalox Admission HPI Per Admitting Provider Ms. Rodriguez is a 25-year-old female whose active medical conditions include gastroesophageal reflux disease, nicotine and cannabis use disorders, iron deficiency anemia who presents to the [facility] due to sudden onset nausea and vomiting that has been intractable and began on the same day of presentation. Patient woke up this morning feeling relatively unwell, then began developing persistent episodes of emesis. They deny any hematemesis nor bilious emesis. They have been able to tolerate oral intake in between these episodes however they feel at everything that they eat or drink shortly afterward come back up. The patient has not tried any medications for this at home. They do have some mild abdominal pain in the left upper quadrant, they describe this is both sharp and aching and it comes and goes. They feel that it is slightly worse after vomiting but then will fade away. They deny any recent travel, new medications or antibiotics, no other individuals in the household are feeling similar symptoms, they have not had any recent dietary changes nor new restaurants in the last few days.The patient denies any alcohol use, they do endorse daily use of vaporized nicotine in addition to use of inhaled marijuana which is obtained at a local dispensary which is used approximately 3 to 4 days/week. Discharge Exam General: Young adult female in no acute distress Vital Signs: Reviewed HEENT: Tacky mucous membranes; pupils equally round and reactive to light, extraocular motion intact Pulmonary: Symmetric chest wall excursion without restriction; clear to auscultation bilaterally Cardiovascular: Regular rate and rhythm without murmurs, rubs, or gallops; S1 and S2 normal; right radial pulse 2+ with brisk capillary refill Gastrointestinal: Soft, nondistended; mildly tender to deep palpation in the left upper quadrant without palpable mass or abnormality it is nonradiating; there are no acute peritoneal findings Discharge Plan Discharge Items Patient Disposition: Home - Self-Care Reason For Visit: INTRACTABLE NAUSEA AND VOMITING Discharge Diagnosis: Severe nausea and vomiting from GERD Condition on Discharge: Good Activity: Resume your previous activity Non-emergency contact: Primary Care Provider Call non-emergency contact if: you have any medication questions Follow-up/Referrals: Erik Horan, [Primary Care Provider] - Diet: Regular Fluids: 2000ml (8 cups) Addtl Attending Provider Instructions: Please maintain adherence to your prescribed mediation regimen, especially your pantoprazole. It is strongly recommended you abstain from nicotine and cannabis use. Pending Studies at Discharge: No Stand-Alone [facility] Medications and DC Order Prescriptions: Continued pantoprazole [Protonix] 40 mg tablet,delayed release (DR/EC) 40 mg PO DAILY 30 Days Qty: 30 0RF Patient Comments: 11/11-last filled 07/19 90 day supply #90 Discontinued ondansetron 4 mg tablet,disintegrating 4 - 8 mg PO Q6H PRN (Reason: nausea and vomiting) Qty: 20 0RF potassium chloride 20 mEq tablet extended release 0 meq PO DAILY Patient Comments: 11/11-last filled 07/19 90 day supply #90 Discharge Orders: Discharge Order (Routine); Ordered 11/12/25 Ordered By: Thomas Garces Admission Data Admit Date/Time: 11/11/25 19:23 Attending Provider: Thomas Garces Admit Provider: Thomas Garces Primary Care Provider: Erik Horan Other Providers: Thomas Garces Other Interventions: Discharge Summary Assessment (RN) Last Done: 11/12/25 20:09 Hospital Stay Data Consultations 11/11/25 17:54 ED Decision to Admit Stat Diagnostic Imagining Performed 11/11/25 14:21 CT abd pelvis IV con only Stat Pending Results Patient Have Any Pending Studies at Discharge: No Discharge Instructions Given to Patient (Per Discharging Provider) Please maintain adherence to your prescribed mediation regimen, especially your pantoprazole. It is strongly recommended you abstain from nicotine and cannabis use. Total Time Total Time Spent Total Time Spent (In Minutes): I personally spent 40 minutes in the coordination of today's discharge including bedside counselling, physical exam, and medication reconciliation Coding Level of Care Code 98644 INP/OBS DISCH >30 MIN Diagnoses Intractable nausea and vomiting R11.2
== END 2025-11-12 20:49 | disposition home or self-care (01) ==
LOC: 3N 14:01 → ED 14:01 → 3N 21:18